=== PATIENT | male | born 1955 | race Caucasian/White ===

== ENCOUNTER 2023-09-01 09:48 | Inpatient (IN) ==
--- NOTE | 2023-09-01 10:16 | Emergency Department Note ---
Impression & Plan Acute left-sided low back pain, Left leg swelling, DVT (deep venous thrombosis), Prostate cancer metastatic to bone ED Provider Note ED Provider Note NAME: TAMARA NICOLAS AGE:67 SEX: Male : 1955 ARRIVES VIA: Private vehicle INFORMANT: Patient ED PROVIDER(s): Zoey Valdovinos DO CHIEF COMPLAINT: Left low back pain, left leg swelling, left leg pain HPI: This is a 67-year-old male presents emergency department due to concern for left low back pain, left leg pain and swelling that began 3 weeks ago. No recent trauma or change in activity. He states symptoms began with the pain in his low back followed by pain and swelling to the leg. He states he has had difficulty performing daily functions. He states has been using a heating pad to try and help with pain. No prior history of back pain or ongoing problems. No recent change in bowel or bladder function. He denies fevers or chills. He states he had persistent nausea and decreased appetite with subsequent weight loss but feels this all started when he had a shoulder replacement surgery 3 months ago. Patient is a former smoker. Patient here visiting his son. PAST MEDICAL HISTORY:See Below PAST SURGICAL HISTORY:See Below FAMILY HISTORY:See Below SOCIAL HISTORY:See Below HOME MEDICATIONS:See Below ALLERGIES:See Below VITALS:See Below PHYSICAL EXAMINATION: GENERAL: alert, unwell appearing, cachectic appearing, no distress, non-toxic EYE EXAM: normal conjunctiva, PERRL and EOM's grossly intact OROPHARYNX: no exudate, no erythema, lips, buccal mucosa, and tongue normal and mucous membranes are moist NECK: supple, no nuchal rigidity, no adenopathy, non-tender LUNGS: Clear to auscultation. Normal chest wall mechanics, no w/r/r HEART: no murmurs, S1 normal and S2 normal ABDOMEN: abdomen soft, non-tender, normo-active bowel sounds, no masses, no rebound or guarding. BACK: Back is symmetrical on inspection and there is no deformity, no midline tenderness, no CVA tenderness. Pain with palpation over the left PSIS. SKIN: no rashes, petechiae, orbruising UPPER EXTREMITIES: upper extremities are grossly normal. FROM, nml pulses b/l. LOWER EXTREMITIES: LLE 2+ pitting edema. FROM, nml pulses b/l. NEURO EXAM: Normal sensorium, cranial nerves II-XII grossly intact, normal speech, no facial droop,nogross weakness of arms, no gross weakness of legs. Gross sensation intact. No ataxia. Vital Signs: reviewed and remarkable Differential Diagnosis: DVT, CHF, TINO, lumbar radiculopathy, occult fracture, musculoskeletal strain/sprain, lymphedema, occult trauma, as well as others were considered MEDICAL DECISION MAKING: This is 67-year-old male presents emerged from due to concern for left lower extremity swelling and left low back pain for the last several weeks. No prior evaluation. He was afebrile vital signs stable. Labs drawn and sent, IV established, EKG performed at bedside interpreted me and patient monitored on telemetry. Patient sent for lower extremity Doppler and then sent for CT of the abdomen pelvis as well as lumbar spine. Doppler positive for DVT. CTs showed a large pelvic mass with metastatic disease to bones and liver. Likely of prostatic origin. Case discussed initially with on-call oncology. They did request input from urology given hydronephrosis noted on CT although patient had no evidence of kidney dysfunction. Urology did review the CT and stated no need for urgent urologic intervention at this time. Oncology was updated. Case discussed with the hospitalist team for additional evaluation and management. Patient started on Lovenox after review of risk versus benefits. Patient with no contraindications to anticoagulation at this time. We did have a discussion at bedside regarding the findings and results as well as the plan forward at this time. Patient verbalized understanding was in agreement with additional inpatient evaluation and management. Consultation(s): 1400: Discussed with Dr. Pizano, [facility]-on[facility]. 1440: Discussed with Nathaly Borges, [facility] who reviewed it with Dr. Zavala. 1525: Discussed with Dr. Gonzalez, [facility] hospitalist team, for additional evaluation and management. ER Treatment Provided: See below Diagnostics Interpreted By Me: -ECG: Normal sinus at 80, normal axis, normal intervals, PAC noted, no acute ST/T wave changes -Cardiac Monitoring: An order was placed for continuous cardiac monitoring. The monitor shows a rate of 70 with normal sinus rhythm. -Laboratory studies: As stated above and show below. -Imaging studies: US: dvt noted Triage Nursing Note Reviewed Prior/Outside Records Reviewed Critical Care: Critical care of 41 min performed to assess and manage high likelihood of life- threatening dvt and metastatic cancer, involving labs and imaging performed with assessment to evaluate back pain and leg swelling diagnosis with frequent reassessment. This time includes bedside time, treatment discussions with patient/family/consultants, documentation time and excludes procedure time. Past Med/Surg History Problem List (Updated 09/02/23 @ 08:37 by Jackie Pizano MD) Metastasis to liver Metastasis to bone HTN (hypertension) Prostate cancer metastatic to bone DVT (deep venous thrombosis) Left leg swelling (Acute) Acute left-sided low back pain (Acute) Social History Smoking Status: Former smoker Hx Alcohol Use: No Preferred Language: [place] Examiner Required: No Current Living Situation: Alone Feels Safe at Home: Yes Assistive Devices: Denture - Upper and Denture - Lower Allergies Allergies Allergy/AdvReac Type Severity Reaction Status Date / Time No Known Allergies Allergy Unverified 09/01/23 14:25 Home Meds Home Medications Medication Instructions Recorded Confirmed acetaminophen 500 mg tablet 500 mg PO Q6H PRN pain/fever 09/01/23 09/01/23 lisinopril 20 mg tablet 20 mg PO QAM 09/01/23 09/01/23 Results & Data (ED) Vital Signs Vital Signs - 24 hr 09/01/23 09:52 09/01/23 10:27 09/01/23 10:28 Temperature 36.2 C L Temperature Source Temporal Artery Scan Pulse Rate 85 93 H 92 H Pulse Rate from SpO2 Sensor 92 H Respiratory Rate 18 Blood Pressure 117/78 Blood Pressure Mean 91 Pulse Oximetry 97 98 Oxygen Delivery Method Room Air Sepsis New/Unexplained Change in Mental Status No Sepsis Action Taken by Nursing No Action Required 09/01/23 10:30 09/01/23 10:30 09/01/23 10:54 Temperature Temperature Source Pulse Rate 93 H 86 Pulse Rate from SpO2 Sensor 83 79 Respiratory Rate 16 14 Blood Pressure 119/98 Blood Pressure Mean 105 Pulse Oximetry 97 96 Oxygen Delivery Method Sepsis New/Unexplained Change in Mental Status Sepsis Action Taken by Nursing 09/01/23 10:57 09/01/23 11:00 09/01/23 11:03 Temperature Temperature Source Pulse Rate 83 88 Pulse Rate from SpO2 Sensor 80 74 Respiratory Rate 19 20 Blood Pressure 140/90 Blood Pressure Mean 104 Pulse Oximetry 97 97 Oxygen Delivery Method Sepsis New/Unexplained Change in Mental Status Sepsis Action Taken by Nursing 09/01/23 11:30 09/01/23 11:30 09/01/23 11:48 Temperature Temperature Source Pulse Rate 75 78 Pulse Rate from SpO2 Sensor 74 70 Respiratory Rate 14 16 Blood Pressure 149/87 H Blood Pressure Mean 104 Pulse Oximetry 97 97 Oxygen Delivery Method Sepsis New/Unexplained Change in Mental Status Sepsis Action Taken by Nursing 09/01/23 11:51 09/01/23 12:00 09/01/23 12:41 Temperature Temperature Source Pulse Rate 75 Pulse Rate from SpO2 Sensor 70 Respiratory Rate 17 Blood Pressure 148/85 H 146/87 H Blood Pressure Mean 102 97 Pulse Oximetry 98 Oxygen Delivery Method Sepsis New/Unexplained Change in Mental Status Sepsis Action Taken by Nursing 09/01/23 12:42 09/01/23 13:00 09/01/23 13:09 Temperature Temperature Source Pulse Rate 78 79 Pulse Rate from SpO2 Sensor 73 70 Respiratory Rate 19 15 Blood Pressure 163/98 H Blood Pressure Mean 127 Pulse Oximetry 98 98 Oxygen Delivery Method Sepsis New/Unexplained Change in Mental Status Sepsis Action Taken by Nursing 09/01/23 13:41 09/01/23 13:51 09/01/23 14:01 Temperature Temperature Source Pulse Rate 79 Pulse Rate from SpO2 Sensor 82 Respiratory Rate 18 Blood Pressure 172/88 H 185/116 H Blood Pressure Mean 91 153 Pulse Oximetry 98 Oxygen Delivery Method Sepsis New/Unexplained Change in Mental Status Sepsis Action Taken by Nursing 09/01/23 14:03 09/01/23 14:12 09/01/23 14:24 Temperature Temperature Source Pulse Rate 71 73 79 Pulse Rate from SpO2 Sensor 72 72 71 Respiratory Rate 19 14 15 Blood Pressure Blood Pressure Mean Pulse Oximetry 98 99 99 Oxygen Delivery Method Sepsis New/Unexplained Change in Mental Status Sepsis Action Taken by Nursing 09/01/23 14:25 09/01/23 15:00 09/01/23 15:09 Temperature Temperature Source Pulse Rate 94 H Pulse Rate from SpO2 Sensor 83 Respiratory Rate 15 Blood Pressure 151/97 H 168/109 H Blood Pressure Mean 115 126 Pulse Oximetry 98 Oxygen Delivery Method Sepsis New/Unexplained Change in Mental Status Sepsis Action Taken by Nursing 09/01/23 15:15 09/01/23 15:21 09/01/23 15:30 Temperature Temperature Source Pulse Rate 79 90 80 Pulse Rate from SpO2 Sensor 76 84 66 Respiratory Rate 14 20 18 Blood Pressure Blood Pressure Mean Pulse Oximetry 98 98 98 Oxygen Delivery Method Sepsis New/Unexplained Change in Mental Status Sepsis Action Taken by Nursing 09/01/23 15:32 09/01/23 15:33 09/01/23 15:51 Temperature Temperature Source Pulse Rate 86 82 Pulse Rate from SpO2 Sensor 68 82 Respiratory Rate 17 17 Blood Pressure 162/95 H Blood Pressure Mean 115 Pulse Oximetry 99 97 Oxygen Delivery Method Sepsis New/Unexplained Change in Mental Status Sepsis Action Taken by Nursing Laboratory Data 09/02/23 07:11 09/02/23 07:11 Lab Results 09/01/23 09/01/23 Range/Units 10:30 11:27 WBC 7.63 (4.8-10.8) K/ul RBC 4.98 (4.70-6.10) M/uL Hgb 14.7 (14.0-18.0) g/dl Hct 42.7 (42.0-52.0) % MCV 85.7 (80.0-100.0) fL MCH 29.5 (25.0-34.0) pg MCHC 34.4 (32.0-36.0) g/dL RDW Std Deviation 42.5 (36.4-46.3) fL RDW Coeff of Daisy 13.8 (11.5-14.5) % Plt Count 231 (130-400) K/uL MPV 9.7 (9.4-12.4) fL Immature Gran % (Auto) 0.9 % Neut % (Auto) 79.9 % Lymph % (Auto) 12.7 % Upson % (Auto) 5.6 % Eos % (Auto) 0.5 % Baso % (Auto) 0.4 % Neut # (Auto) 6.09 (1.40-6.50) K/uL Lymph # (Auto) 0.97 L (1.20-3.40) K/uL Upson # (Auto) 0.43 (0.11-0.59) K/uL Eos # (Auto) 0.04 (0.00-0.50) K/uL Baso # (Auto) 0.03 (0.00-0.20) K/uL Immature Gran # (Auto) 0.07 (0.01-0.20) K/uL PT 11.9 (9.0-12.0) Seconds INR 1.1 (0.9-1.1) Sodium 131 L (136-145) mmol/L Potassium 3.6 (3.5-5.1) mmol/L Chloride 93 L (98-107) mmol/L Carbon Dioxide 29 (21-32) mmol/L Anion Gap 9 (3-11) BUN 15 (6-23) mg/dl Creatinine 1.23 (0.6-1.4) mg/dl Est Cr Clr Drug Dosing 42.3 ml/min Est GFR ( Amer) 69.0 ml/min Est GFR (Non-Af Amer) 59.5 ml/min BUN/Creatinine Ratio 12.2 (10-20) Glucose 135 H (70-99(Fasting)) mg/dl Calcium 9.2 (8.6-10.3) mg/dl Magnesium 1.8 (1.7-2.4) mg/dl Total Bilirubin 0.8 (0.2-1.0) mg/dl AST 33 (13-39) U/L ALT 18 (7-52) U/L Alkaline Phosphatase 180 H (34-104) U/L Troponin I High Sens 8.9 (0-20) pg/ml Total Protein 7.8 (6.0-8.3) gm/dl Albumin 4.8 (3.4-5.0) gm/dl Globulin 3.0 (2.5-4.0) gm/dl Albumin/Globulin Ratio 1.6 (0.9-2) Lipase 24 (11-82) U/L Prostate Specific Ag 442.000 H (0-4) ng/ml TSH 1.228 (0.300-4.500) uIu/ml Urine Color Yellow Urine Appearance Clear (Clear) Urine pH 7.0 (4.5-7.5) Ur Specific Ragan 1.019 (1.000-1.030) Urine Protein 1+ H (Negative) Urine Glucose (UA) Negative (Negative) Urine Ketones Trace H (Negative) Urine Blood Negative (Negative) Urine Nitrite Negative (Negative) Urine Bilirubin Negative (Negative) Urine Urobilinogen Negative (Negative) Ur Leukocyte Esterase Negative (Negative) Urine WBC (Auto) 0-5 (0-5) /hpf Urine RBC (Auto) 0-2 (0-2) /hpf U Hyaline Cast (Auto) 0-2 (0-2) /lpf U Epithel Cells (Auto) 0-2 (0-2) /hpf Urine Bacteria (Auto) None Seen (None Seen) Administered Medications Enoxaparin Sodium (Enoxaparin Inj 60 Mg/0.6 Ml Syr) 50 mg SQ Q12H [facility] Stop: 10/02/23 03:59 Last Admin: 09/02/23 04:19 Dose: 50 mg Documented By: SRW Sodium Chloride (Nss) 1,000 mls @ 125 mls/hr IV .Q8H [facility] Stop: 10/01/23 10:14 Last Admin: 09/02/23 03:25 Dose: 125 mls/hr Documented By: W Infusion: 09/02/23 03:09 Dose: Infused Documented By: Admin: 09/01/23 19:09 Dose: 125 mls/hr Documented By: W Infusion: 09/01/23 18:25 Dose: Infused Documented By: Admin: 09/01/23 10:25 Dose: 125 mls/hr Documented By: BRINA Ceftriaxone Sodium (Rocephin) 2,000 mg in 50 mls @ 100 mls/hr IV Q24H [facility] Stop: 09/08/23 22:59 Last Infusion: 09/02/23 00:24 Dose: Infused Documented By: Admin: 09/01/23 23:45 Dose: 100 mls/hr Documented By: MAXIMINO Azithromycin 500 mg/ Dextrose 255 mls @ 127.5 mls/hr IV Q24H [facility] Stop: 09/09/23 00:00 Last Infusion: 09/02/23 04:17 Dose: Infused Documented By: Admin: 09/02/23 00:23 Dose: 127.5 mls/hr Documented By: MAXIMINO Lidocaine (Lidocaine 5% 1 Patch) 1 patch TD DAILY [facility] Stop: 10/02/23 08:59 Last Admin: 09/01/23 19:12 Dose: Not Given Documented By: SRW Lisinopril (Lisinopril 20 Mg Tab) 20 mg PO QAM [facility] Stop: 10/02/23 08:59 Last Admin: 09/02/23 08:14 Dose: 20 mg Documented By: PATRICIA Miscellaneous (Remove Lidoderm Patch) 1 each N/A DAILY@2100 [facility] Stop: 10/01/23 20:59 Last Admin: 09/01/23 19:12 Dose: Not Given Documented By: SRW Morphine Sulfate (Morphine Sulfate 4 Mg/Ml 1 Ml Carp\Vial) 4 mg IV Q4 PRN PRN Reason: Severe Pain (Scale 7, 8, 9,10) Stop: 09/15/23 15:50 Last Admin: 09/02/23 07:28 Dose: 4 mg Documented By: Admin: 09/02/23 03:24 Dose: 4 mg Documented By: Admin: 09/01/23 23:06 Dose: 4 mg Documented By: Admin: 09/01/23 19:08 Dose: 4 mg Documented By: SRW Discontinued Medications Enoxaparin Sodium (Enoxaparin 1 Mg/Kg) 1 mg SQ NOW STA Stop: 09/01/23 14:56 Last Admin: 09/01/23 15:35 Dose: Not Given Documented By: ML Enoxaparin Sodium (Enoxaparin Inj 60 Mg/0.6 Ml Syr) 50 mg SQ NOW STA Stop: 09/01/23 15:05 Last Admin: 09/01/23 15:35 Dose: 50 mg Documented By: BRINA Acetaminophen (Ofirmev) 1,000 mg in 100 mls @ 400 mls/hr IV NOW STA Stop: 09/01/23 10:27 Last Infusion: 09/01/23 10:39 Dose: Infused Documented By: Admin: 09/01/23 10:24 Dose: 400 mls/hr Documented By: ML Ioversol (Optiray 320 100ml) 94 ml IV ONCE ONE Stop: 09/01/23 12:58 Last Admin: 09/01/23 12:59 Dose: 94 ml Documented By: JAR Ioversol (Optiray 320 125ml) 90 ml IV ONCE ONE Stop: 09/01/23 20:44 Last Admin: 09/01/23 20:43 Dose: 90 ml Documented By: PLW Lidocaine (Lidocaine 5% 1 Patch) 1 patch TD NOW STA Stop: 09/01/23 10:13 Last Admin: 09/01/23 10:24 Dose: 1 patch Documented By: BRINA Lisinopril (Lisinopril 10 Mg Tab) 10 mg PO QAM [facility] Stop: 10/01/23 15:59 Last Admin: 09/01/23 17:49 Dose: Not Given Documented By: ANGELA Morphine Sulfate (Morphine Sulfate 4 Mg/Ml 1 Ml Carp\Vial) 4 mg IV NOW STA Stop: 09/01/23 15:26 Last Admin: 09/01/23 15:35 Dose: 4 mg Documented By: ML Imaging Data Radiologist's Impression: Venous Doppler Study 09/01/23 10:12 LEFT LOWER EXTREMITY VENOUS DOPPLER HISTORY: Left leg edema, pain COMPARISON STUDY: None. FINDINGS: There is occlusive to near occlusive thrombus seen within the left common femoral vein and left superficial femoral vein. The left popliteal vein and left calf veins appear patent. There is also thrombus seen within the left greater saphenous vein. IMPRESSION: Left lower extremity DVT as described above. ACT 112: Negative or not required by law. Electronically signed by: Manuel March M.D. 09/01/2023 12:41 PM Abdomen/Pelvis CT 09/01/23 12:38 CT OF THE ABDOMEN AND PELVIS WITH CONTRAST CLINICAL HISTORY: Left back pain, wt loss, LLE swelling. COMPARISON STUDY: None. TECHNIQUE: Following IV administration of 94 mL of Optiray, axial images of the abdomen and pelvis were obtained from the lung bases to the proximal femurs. Images were reviewed in the axial, sagittal, and coronal planes. IV contrast was administered without complication. Automated exposure control was utilized for the study. A dose lowering technique was utilized adhering to the principles of ALARA. CT DOSE: 787.32 mGy.cm FINDINGS: Right lower lobe airspace opacity with interlobular septal thickening is partially imaged on this exam. No pneumatosis, free air or portal venous gas is present. There is a small hiatal hernia. Multiple large hepatic masses are present. These are likely centrally necrotic. Index segment 4 lesion measures 9.1 x 8.4 cm. There is no biliary or pancreatic ductal dilatation. The spleen, adrenal glands and pancreas are unremarkable. The right kidney is unremarkable. There is moderate left hydroureteronephrosis with delayed nephrogram and left renal atrophy. There is abrupt narrowing of the left ureter at the level of the upper pelvis on image 214 of 337. This is due to pathologic adenopathy. Extensive left-sided retroperitoneal lymphadenopathy. Index infiltrative left iliac node on image 216 measures 4.6 x 3.2 cm. This adenopathy likely occludes the left iliac veins. There is a large infiltrative left pelvic mass which measures 8.5 x 6.5 cm. This partially encases the prostate gland and extends to the base of the bladder and rectum. Bladder wall thickening is noted. In addition, there is rectal wall thickening. Pathologic perirectal lymph nodes are present. There is no evidence for a bowel obstruction. Numerous sclerotic skeletal lesions are present. No pathologic fractures are identified. Probable extension of tumor into the left iliac and gluteal musculature is noted. There is asymmetric edema within the left thigh. IMPRESSION: 1. Extensive hepatic, skeletal and glenny metastases, as described above. 8.5 x 6.5 cm infiltrative left pelvic mass which encases the prostate and abuts the rectum and bladder. The findings favor prostate cancer with metastatic disease. 2. Infiltrative left iliac adenopathy likely occludes the left iliac veins and narrows the left ureter with resultant moderate left hydroureteronephrosis with delayed nephrogram and left renal atrophy. 3. No bowel obstruction. 4. Partially visualized right lower lobe airspace opacity with interlobular septal thickening. ACT 112: Negative or not required by law. Electronically signed by: Diego Whyte M.D. 09/01/2023 1:[address] 09/01/23 12:38 CT lumbar spine w con CT DOSE: CLINICAL HISTORY: left lbp, LLE edema, wt loss TECHNIQUE: Multiaxial CT images of the lumbar spine were performed following the intravenous administration of contrast and reformatted in the sagittal and coronal plane. A dose lowering technique was utilized adhering to the principles of ALARA. COMPARISON STUDY: None. FINDINGS: There is multifocal osteoblastic metastatic disease within the lumbar spine and sacrum. Dominant lesion at the L2 level measures 1.7 cm. No acute fractures within the lumbar spine. Mild disc space narrowing at L2-L3. No significant central canal narrowing by CT technique. There is retroperitoneal and left iliac lymphadenopathy. There is left-sided hydronephrosis. Partially visualized hepatic masses. IMPRESSION: 1. 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 2. No acute fractures. 3. Retroperitoneal and left iliac lymphadenopathy with multiple hepatic masses. This likely represents metastatic disease. This is better appreciated on the same day abdomen and pelvis CT. ACT 112: Negative or not required by law. Electronically signed by: Manuel March M.D. 09/01/2023 1:10 PM Discharge Plan Visit Data Chief Complaint: Leg Injury/Pain Stated Complaint: L LEG SWELLING, DIZZY, LBP, L KNEE PAIN, WEAK ED Provider: Zoey Valdovinos Discharge Problem: Acute left-sided low back pain, Left leg swelling, DVT (deep venous thrombosis), Prostate cancer metastatic to bone Patient Disposition: Admitted As Inpatient Discharge Instructions Interventions: ED Discharge Assessment Last Done: 09/01/23 17:14
[2023-09-01] MEDS: ACETAMINOPHEN 1,000 MG/100 ML VIAL IV STA (10:24)
[2023-09-01] MEDS: LIDOCAINE 5% 1 PATCH TD STA (10:24)
[2023-09-01] MEDS: SODIUM CHLORIDE 0.9% 1,000 ML IV SCH (10:25)
[2023-09-01 11:05] LABS: Basophils # (auto) 0.03 K/uL (0.00-0.20); Basophils % (auto) 0.4 %; Eosinophils # (auto) 0.04 K/uL (0.00-0.50); Eosinophils % (auto) 0.5 %; Hematocrit (blood only) 42.7 % (42.0-52.0); Hemoglobin 14.7 g/dl (14.0-18.0); INR 1.1 (0.9-1.1); Immature Granulocytes # (auto) 0.07 K/uL (0.01-0.20); Immature Granulocytes % (auto) 0.9 %; Lymphocytes # (auto) 0.97 K/uL (1.20-3.40); Lymphocytes % (auto) 12.7 %; Mean Corpuscular Hemoglobin 29.5 pg (25.0-34.0); Mean Corpuscular Hgb Conc 34.4 g/dL (32.0-36.0); Mean Corpuscular Volume 85.7 fL (80.0-100.0); Mean Platelet Volume 9.7 fL (9.4-12.4); Monocytes # (auto) 0.43 K/uL (0.11-0.59); Monocytes % (auto) 5.6 %; Neutrophils # (auto) 6.09 K/uL (1.40-6.50); Neutrophils % (auto) 79.9 %; Platelet Count 231 K/uL (130-400); Prothrombin Time 11.9 Seconds (9.0-12.0); RDW Coefficient of Variation 13.8 % (11.5-14.5); RDW Standard Deviation 42.5 fL (36.4-46.3); Red Blood Count 4.98 M/uL (4.70-6.10); White Blood Count 7.63 K/ul (4.8-10.8)
[2023-09-01 11:11] LABS: Albumin Globulin Ratio 1.6 (0.9-2); Albumin Level 4.8 gm/dl (3.4-5.0); BUN Creatinine Ratio 12.2 (10-20); Bilirubin,Total 0.8 mg/dl (0.2-1.0); Calcium 9.2 mg/dl (8.6-10.3); Creatinine Clr Calc Pharmacy 42.3 ml/min; Est GFR (Non-African American) 59.5 ml/min; Magnesium 1.8 mg/dl (1.7-2.4); Potassium 3.6 mmol/L (3.5-5.1); Total Protein 7.8 gm/dl (6.0-8.3)
[2023-09-01 11:18] LABS: Troponin I High Sensitivity 8.9 pg/ml (0-20)
[2023-09-01 11:26] LABS: Thyroid Stimulating Hormone 1.228 uIu/ml (0.300-4.500)
[2023-09-01 11:49] LABS: Appearance Urine Clear (Clear); Bacteria Urine Automated None Seen (None Seen); Bilirubin Urine Negative (Negative); Blood Urine Negative (Negative); Cast Urine Automated 0-2 /lpf (0-2); Color Urine Yellow; Epithelial Cell Urine Auto 0-2 /hpf (0-2); Glucose Urine UA Negative (Negative); Ketones Urine Trace (Negative); Leukocyte Esterase Urine Negative (Negative); Nitrite Urine Negative (Negative); Protein Urine 1+ (Negative); RBC Urine Automated 0-2 /hpf (0-2); Specific Gravity Urine 1.019 (1.000-1.030); Urobilinogen Urine Negative (Negative); WBC Urine Automated 0-5 /hpf (0-5)
--- NOTE | 2023-09-01 12:43 | Ultrasound Report ---
LEFT LOWER EXTREMITY VENOUS DOPPLER HISTORY: Left leg edema, pain COMPARISON STUDY: None. FINDINGS: There is occlusive to near occlusive thrombus seen within the left common femoral vein and left superficial femoral vein. The left popliteal vein and left calf veins appear patent. There is al so thrombus seen within the left greater saphenous vein. IMPRESSION: Left lower extremity DVT as described above. ACT 112: Negative or not required by law. Electronically signed by: Manuel March M.D. 09/01/2023 12:41 PM
[2023-09-01] MEDS: OPTIRAY 320 100ml IV ONE (12:59)
--- NOTE | 2023-09-01 13:11 | CT Scan Report ---
CT lumbar spine w con CT DOSE: CLINICAL HISTORY: left lbp, LLE edema, wt loss TECHNIQUE: Multiaxial CT images of the lumbar spine were performed following the intravenous administ ration of contrast and reformatted in the sagittal and coronal plane. A dose lowering technique was utilized adhering to the principles of ALARA. COMPARISON STUDY: None. FINDINGS: There is multifocal osteoblastic metastatic disease within the lumbar spine and sacrum. Dom inant lesion at the L2 level measures 1.7 cm. No acute fractures within the lumbar spine. Mild disc s pace narrowing at L2-L3. No significant central canal narrowing by CT technique. There is retroperito mark and left iliac lymphadenopathy. There is left-sided hydronephrosis. Partially visualized hepatic masses. IMPRESSION: 1. 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 2. No acute fractures. 3. Retroperitoneal and left iliac lymphadenopathy with multiple hepatic masses. This likely represent s metastatic disease. This is better appreciated on the same day abdomen and pelvis CT. ACT 112: Negative or not required by law. Electronically signed by: Manuel March M.D. 09/01/2023 1:10 PM
--- NOTE | 2023-09-01 13:44 | CT Scan Report ---
CT OF THE ABDOMEN AND PELVIS WITH CONTRAST CLINICAL HISTORY: Left back pain, wt loss, LLE swelling. COMPARISON STUDY: None. TECHNIQUE: Following IV administration of 94 mL of Optiray, axial images of the abdomen and pelvis we re obtained from the lung bases to the proximal femurs. Images were reviewed in the axial, sagittal, and coronal planes. IV contrast was administered without complication. Automated exposure control wa s utilized for the study. A dose lowering technique was utilized adhering to the principles of ALARA . CT DOSE: 787.32 mGy.cm FINDINGS: Right lower lobe airspace opacity with interlobular septal thickening is partially imaged o n this exam. No pneumatosis, free air or portal venous gas is present. There is a small hiatal hernia . Multiple large hepatic masses are present. These are likely centrally necrotic. Index segment 4 les ion measures 9.1 x 8.4 cm. There is no biliary or pancreatic ductal dilatation. The spleen, adrenal g lands and pancreas are unremarkable. The right kidney is unremarkable. There is moderate left hydrour eteronephrosis with delayed nephrogram and left renal atrophy. There is abrupt narrowing of the left ureter at the level of the upper pelvis on image 214 of 337. This is due to pathologic adenopathy. Ex tensive left-sided retroperitoneal lymphadenopathy. Index infiltrative left iliac node on image 216 m easures 4.6 x 3.2 cm. This adenopathy likely occludes the left iliac veins. There is a large infiltra tive left pelvic mass which measures 8.5 x 6.5 cm. This partially encases the prostate gland and exte nds to the base of the bladder and rectum. Bladder wall thickening is noted. In addition, there is re ctal wall thickening. Pathologic perirectal lymph nodes are present. There is no evidence for a bowel obstruction. Numerous sclerotic skeletal lesions are present. No pathologic fractures are identified . Probable extension of tumor into the left iliac and gluteal musculature is noted. There is asymmetr ic edema within the left thigh. IMPRESSION: 1. Extensive hepatic, skeletal and glenny metastases, as described above. 8.5 x 6.5 cm infiltrative le ft pelvic mass which encases the prostate and abuts the rectum and bladder. The findings favor prosta te cancer with metastatic disease. 2. Infiltrative left iliac adenopathy likely occludes the left iliac veins and narrows the left urete r with resultant moderate left hydroureteronephrosis with delayed nephrogram and left renal atrophy. 3. No bowel obstruction. 4. Partially visualized right lower lobe airspace opacity with interlobular septal thickening. ACT 112: Negative or not required by law. Electronically signed by: Diego Whyte M.D. 09/01/2023 1:43 PM
[2023-09-01] MEDS: ENOXAPARIN INJ 60 MG/0.6 ML SYR SQ STA (15:35)
[2023-09-01] MEDS: ENOXAPARIN 1 MG/KG SQ STA (15:35)
[2023-09-01] MEDS: MoRPHine SULFATE 4 MG/ML 1 ML CARP\\VIAL IV STA (15:35)
[2023-09-01] MEDS ORDERED: ONDANSETRON INJ 2 MG/ML 2 ML VIAL IV PRN (15:46)
[2023-09-01] MEDS ORDERED: MAGNESIUM HYDROXIDE SUSP 30 ML UDC PO PRN (15:46)
[2023-09-01] MEDS ORDERED: POLYETHYLENE (MIRALAX) 17 GM PACK PO PRN (15:46)
[2023-09-01] MEDS ORDERED: ACETAMINOPHEN 325 MG TAB PO PRN (15:46)
[2023-09-01] MEDS ORDERED: oxyCODONE HCL IR 5 MG TAB (IMMEDIATE RELEASE) PO PRN (15:52)
[2023-09-01] MEDS ORDERED: ENOXAPARIN 1 MG/KG SQ SCH (16:00)
--- NOTE | 2023-09-01 16:36 | History & Physical Report ---
Date of Service September 01, 2023 Assessment & Plan (1) DVT (deep venous thrombosis): Plan: Left lower extremity DVT , most likely due to to cancer Started on Lovenox (2) Prostate cancer metastatic to bone: Plan: Right lower lobe airspace opacity with interlobular septal thickening is partially imaged on this exam. No pneumatosis, free air or portal venous gas is present. There is a small hiatal hernia. Multiple large hepatic masses are present. These are likely centrally necrotic. Index segment 4 lesion measures 9.1 x 8.4 cm. There is no biliary or pancreatic ductal dilatation. The spleen, adrenal glands and pancreas are unremarkable. The right kidney is unremarkable. There is moderate left hydroureteronephrosis with delayed nephrogram and left renal atrophy. There is abrupt narrowing of the left ureter at the level of the upper pelvis on image 214 of 337. This is due to pathologic adenopathy. Extensive left-sided retroperitoneal lymphadenopathy. Index infiltrative left iliac node on image 216 measures 4.6 x 3.2 cm. This adenopathy likely occludes the left iliac veins. There is a large infiltrative left pelvic mass which measures 8.5 x 6.5 cm. This partially encases the prostate gland and extends to the base of the bladder and rectum. Bladder wall thickening is noted. In addition, there is rectal wall thickening. Pathologic perirectal lymph nodes are present. There is no evidence for a bowel obstruction. Numerous sclerotic skeletal lesions are present. No pathologic fractures are identified. Probable extension of tumor into the left iliac and gluteal musculature is noted. There i s asymmetric edema within the left thigh. Metastatic prostate cancer, mets to the liver, possibly lungs, bones Consult hematology oncology Consult urology Will need a biopsy, probably liver can be biopsied pain control (3) HTN (hypertension): Plan: Continue lisinopril, monitor blood pressure Plan Admit to the floor Will start Lovenox Consult hematology oncology, will need a biopsy, PSA ordered Poor prognosis, patient wants to be full code History of Present Illness Chief Complaint: left leg pain and swelling Primary Care Provider: RICHARD PCP This is a 67-year-old male with history of hypertension , recent right shoulder surgery presents emergency department due to concern for left low back pain, left leg pain and swelling that began 3 weeks ago. No recent trauma or change in activity. He states symptoms began with the pain in his low back followed by pain and swelling to the leg. He states he has had difficulty performing daily functions. He states has been using a heating pad to try and help with pain. No prior history of back pain or ongoing problems. No recent change in bowel or bladder function. He denies fevers or chills. He states he had persistent nausea and decreased appetite with subsequent weight loss but feels this all started when he had a shoulder replacement surgery 3 months ago. Patient is a former smoker. Venous Doppler positive for left lower leg DVT, started on Lovenox, CT abdomen pelvis extensive hepatic skeletal and glenny metastasis, there is a 8.5 x 6.5 cm infiltrative left pelvic mass which encases the prostate, findings favor prostate cancer with metastatic disease, has moderate left hydro ureteronephrosis. Patient denies any difficulties urinating, no hematuria, no fever or chills, reports significant weight loss, poor appetite, he still smokes a few cigarettes a day. Allergies Allergy/AdvReac Type Severity Reaction Status Date / Time No Known Allergies Allergy Unverified 09/01/23 14:25 Home Medications Medication Instructions Recorded Confirmed Type acetaminophen 500 mg tablet 500 mg PO Q6H PRN pain/fever 09/01/23 09/01/23 History lisinopril 20 mg tablet 20 mg PO QAM 09/01/23 09/01/23 History Past Med/Surg History Problem List (Updated 09/01/23 @ 16:31 by Diane Gonzalez MD) HTN (hypertension) Prostate cancer metastatic to bone DVT (deep venous thrombosis) Left leg swelling (Acute) Acute left-sided low back pain (Acute) Social History Smoking Status: Former smoker Preferred Language: Nauruan Feels Safe at Home: Yes Review of Systems Review of Systems: All systems reviewed & are unremarkable except as noted in Subjective Physical Exam Physical Exam: GENERAL: alert, unwell appearing, cachectic appearing, no distress, non-toxic EYE EXAM: normal conjunctiva, PERRL and EOM's grossly intact OROPHARYNX: no exudate, no erythema, lips, buccal mucosa, and tongue normal and mucous membranes are moist NECK: supple, no nuchal rigidity, no adenopathy, non-tender LUNGS: Clear to auscultation. Normal chest wall mechanics, no w/r/r HEART: no murmurs, S1 normal and S2 normal ABDOMEN: abdomen soft, non-tender, normo-active bowel sounds, no masses, no rebound or guarding. BACK: Back is symmetrical on inspection and there is no deformity, no midline tenderness, no CVA tenderness. Pain with palpation over the left PSIS. SKIN: no rashes, petechiae, orbruising UPPER EXTREMITIES: upper extremities are grossly normal. FROM, nml pulses b/l. LOWER EXTREMITIES: LLE 2+ pitting edema. FROM, nml pulses b/l. NEURO EXAM: Normal sensorium, cranial nerves II-XII grossly intact, normal speech, no facial droop,nogross weakness of arms, no gross weakness of legs. Gross sensation intact. No ataxia. Results & Data Results & Data Vital Signs (Past 12 Hours) Vital Signs Temp Pulse Resp BP Pulse Ox O2 Del Method 09/01/23 15:32 162/95 H 09/01/23 15:30 80 18 98 09/01/23 15:21 90 20 98 09/01/23 15:15 79 14 98 09/01/23 15:09 94 H 15 98 09/01/23 15:00 168/109 H 09/01/23 14:25 151/97 H 09/01/23 14:24 79 15 99 09/01/23 14:12 73 14 99 09/01/23 14:03 71 19 98 09/01/23 14:01 185/116 H 09/01/23 13:51 79 18 98 09/01/23 13:41 172/88 H 09/01/23 13:09 79 15 98 09/01/23 13:00 163/98 H 09/01/23 12:42 78 19 98 09/01/23 12:41 146/87 H 09/01/23 12:00 148/85 H 09/01/23 11:51 75 17 98 09/01/23 11:48 78 16 97 09/01/23 11:30 149/87 H 09/01/23 11:30 75 14 97 09/01/23 11:03 88 20 97 09/01/23 11:00 140/90 09/01/23 10:57 83 19 97 09/01/23 10:54 86 14 96 09/01/23 10:30 93 H 16 97 09/01/23 10:30 119/98 09/01/23 10:28 92 H 09/01/23 10:27 93 H 98 09/01/23 09:52 36.2 C L 85 18 117/78 97 Room Air Laboratory Results Abnormal lab results 09/01/23 09/01/23 Range/Units 10:30 11:27 Lymph # (Auto) 0.97 L (1.20-3.40) K/uL Sodium 131 L (136-145) mmol/L Chloride 93 L (98-107) mmol/L Glucose 135 H (70-99(Fasting)) mg/dl Alkaline Phosphatase 180 H (34-104) U/L Prostate Specific Ag 442.000 H (0-4) ng/ml Urine Protein 1+ H (Negative) Urine Ketones Trace H (Negative) Diagnostic Findings Venous Doppler Study 09/01/23 10:12 LEFT LOWER EXTREMITY VENOUS DOPPLER HISTORY: Left leg edema, pain COMPARISON STUDY: None. FINDINGS: There is occlusive to near occlusive thrombus seen within the left common femoral vein and left superficial femoral vein. The left popliteal vein and left calf veins appear patent. There is also thrombus seen within the left greater saphenous vein. IMPRESSION: Left lower extremity DVT as described above. ACT 112: Negative or not required by law. Electronically signed by: Manuel March M.D. 09/01/2023 12:41 PM Abdomen/Pelvis CT 09/01/23 12:38 CT OF THE ABDOMEN AND PELVIS WITH CONTRAST CLINICAL HISTORY: Left back pain, wt loss, LLE swelling. COMPARISON STUDY: None. TECHNIQUE: Following IV administration of 94 mL of Optiray, axial images of the abdomen and pelvis were obtained from the lung bases to the proximal femurs. Images were reviewed in the axial, sagittal, and coronal planes. IV contrast was administered without complication. Automated exposure control was utilized for the study. A dose lowering technique was utilized adhering to the principles of ALARA. CT DOSE: 787.32 mGy.cm FINDINGS: Right lower lobe airspace opacity with interlobular septal thickening is partially imaged on this exam. No pneumatosis, free air or portal venous gas is present. There is a small hiatal hernia. Multiple large hepatic masses are present. These are likely centrally necrotic. Index segment 4 lesion measures 9.1 x 8.4 cm. There is no biliary or pancreatic ductal dilatation. The spleen, adrenal glands and pancreas are unremarkable. The right kidney is unremarkable. There is moderate left hydroureteronephrosis with delayed nephrogram and left renal atrophy. There is abrupt narrowing of the left ureter at the level of the upper pelvis on image 214 of 337. This is due to pathologic adenopathy. Extensive left-sided retroperitoneal lymphadenopathy. Index infiltrative left iliac node on image 216 measures 4.6 x 3.2 cm. This adenopathy likely occludes the left iliac veins. There is a large infiltrative left pelvic mass which measures 8.5 x 6.5 cm. This partially encases the prostate gland and extends to the base of the bladder and rectum. Bladder wall thickening is noted. In addition, there is rectal wall thickening. Pathologic perirectal lymph nodes are present. There is no evidence for a bowel obstruction. Numerous sclerotic skeletal lesions are present. No pathologic fractures are identified. Probable extension of tumor into the left iliac and gluteal musculature is noted. There is asymmetric edema within the left thigh. IMPRESSION: 1. Extensive hepatic, skeletal and glenny metastases, as described above. 8.5 x 6.5 cm infiltrative left pelvic mass which encases the prostate and abuts the rectum and bladder. The findings favor prostate cancer with metastatic disease. 2. Infiltrative left iliac adenopathy likely occludes the left iliac veins and narrows the left ureter with resultant moderate left hydroureteronephrosis with delayed nephrogram and left renal atrophy. 3. No bowel obstruction. 4. Partially visualized right lower lobe airspace opacity with interlobular septal thickening. ACT 112: Negative or not required by law. Electronically signed by: Diego Whyte M.D. 09/01/2023 1:[address] 09/01/23 12:38 CT lumbar spine w con CT DOSE: CLINICAL HISTORY: left lbp, LLE edema, wt loss TECHNIQUE: Multiaxial CT images of the lumbar spine were performed following the intravenous administration of contrast and reformatted in the sagittal and coronal plane. A dose lowering technique was utilized adhering to the principles of ALARA. COMPARISON STUDY: None. FINDINGS: There is multifocal osteoblastic metastatic disease within the lumbar spine and sacrum. Dominant lesion at the L2 level measures 1.7 cm. No acute fractures within the lumbar spine. Mild disc space narrowing at L2-L3. No significant central canal narrowing by CT technique. There is retroperitoneal and left iliac lymphadenopathy. There is left-sided hydronephrosis. Partially visualized hepatic masses. IMPRESSION: 1. 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 2. No acute fractures. 3. Retroperitoneal and left iliac lymphadenopathy with multiple hepatic masses. This likely represents metastatic disease. This is better appreciated on the same day abdomen and pelvis CT. ACT 112: Negative or not required by law. Electronically signed by: Manuel March M.D. 09/01/2023 1:10 PM Code Status & VTE Plan VTE Prophylaxis Plan VTE Prophylaxis will be ordered: Yes PG Care Time/CCT Total # of Minutes Spent Total Time Spent with Patient: Total time spent is greater than 50% in coordination of care (as documented) at patient's floor/unit and/or counseling patient: Coding Level of Care Code 94666 INT INP/OBS CARE 375MIN Diagnoses DVT (deep venous thrombosis) I82.409 Prostate cancer metastatic to bone C61; C79.51 HTN (hypertension) I10
--- NOTE | 2023-09-01 17:05 | XRay Report ---
XR chest 2V PA/lateral HISTORY: Shortness of breath. COMPARISON: None. FINDINGS: No pneumothorax. No pleural effusions. The lungs are hyperexpanded with emphysematous osborne es. No focal lung consolidations to suggest a pneumonia. No evidence for pulmonary edema. The heart i s normal in size. The right shoulder prosthesis. Mild anterior wedging within the mid thoracic spine vertebral body is likely chronic. There is a 7 mm nodular density within the left midlung zone. This may represent a normal pulmonary vessel. IMPRESSION: 1. Emphysema. 2. No acute process within the chest. 3. A 7 mm nodular density within the left midlung zone may represent a normal pulmonary vessel. This will be better appreciated on the same day chest CTA. ACT 112: Negative or not required by law. Electronically signed by: Manuel March M.D. 09/01/2023 5:03 PM
[2023-09-01] MEDS ORDERED: ACETAMINOPHEN 500 MG TAB PO PRN (17:32)
[2023-09-01] MEDS: lisinopril 10 MG TAB PO SCH (17:49)
[2023-09-01] MEDS: MoRPHine SULFATE 4 MG/ML 1 ML CARP\\VIAL IV PRN (19:08)
[2023-09-01] MEDS: LIDOCAINE 5% 1 PATCH TD SCH (19:12)
[2023-09-01] MEDS: OPTIRAY 320 125ml IV ONE (20:43)
--- NOTE | 2023-09-01 21:22 | CT Scan Report ---
CT angio chest PE protocol CLINICAL HISTORY: PE TECHNIQUE: Multidetector row helical CT of the chest was performed with angiographic protocol. Gonsalez l and sagittal reformations were obtained. Coronal and sagittal MIPS were obtained from the axial clary a set and were submitted for review. Automated dose lowering techniques and/or adjustment according to patient size were utilized for this exam. CT DOSE: 395.36 mGy.cm Comparison: None available at the time of this dictation. FINDINGS: Lungs and pleura: Diffuse centrilobular emphysema is seen most prominent in the upper lobes. Multiple wall thickening, mucous plugging, and tree-in-bud nodularity are seen most prominently in the right lower lobe. There is also a paramediastinal density measuring 7 m. Heart and pericardium: Heart size is normal. No pericardial effusion. Vessels: No evidence of pulmonary embolism. Mediastinum and zoe: Unremarkable. Chest wall and lower neck: Small thyroid nodules are noted which do not require follow-up by ACR romulo cedeno. Abdomen: For findings below the diaphragm, please refer to CT of the abdomen dated the same. Bones: Degenerative changes in the thoracic spine. Scattered sclerotic foci are seen. Right shoulder arthroplasty is seen. IMPRESSION: 1. Scattered bronchial wall thickening, mucus plugging, and nodules/airspace opacities compatible wi th pneumonia. Follow-up to resolution is recommended. 2. Multiple sclerotic foci are seen in the skeleton compatible with metastatic disease. ACT 112: Negative or not required by law. Electronically signed by: Miguelito Whiting M.D. 09/01/2023 9:20 PM
--- NOTE | 2023-09-01 22:05 | Communication Note ---
Date of Service: September 01, 2023 Stat CTA resulted showing pneumonia. Started pt on ceftriaxone and azithromycin q24hrs.
[2023-09-01] MEDS: cefTRIAXone SODIUM 2,000 MG/50 ML BAG IV SCH (23:45)
[2023-09-02] MEDS: AZITHROMYCIN 500 MG in DEXTROSE 5% 250 ML IV SCH (00:23)
[2023-09-02] MEDS: ENOXAPARIN INJ 60 MG/0.6 ML SYR SQ SCH ×2 (04:19→15:58)
[2023-09-02 07:59] LABS: Hematocrit (blood only) 37.8 % (42.0-52.0); Hemoglobin 12.9 g/dl (14.0-18.0); Mean Corpuscular Hemoglobin 29.8 pg (25.0-34.0); Mean Corpuscular Hgb Conc 34.1 g/dL (32.0-36.0); Mean Corpuscular Volume 87.3 fL (80.0-100.0); Mean Platelet Volume 9.7 fL (9.4-12.4); Platelet Count 201 K/uL (130-400); RDW Standard Deviation 43.8 fL (36.4-46.3); Red Blood Count 4.33 M/uL (4.70-6.10); White Blood Count 6.95 K/ul (4.8-10.8)
--- NOTE | 2023-09-02 08:05 | Oncology Consultation ---
Date of Consultation September 02, 2023 Assessment & Plan (1) DVT (deep venous thrombosis): (2) Metastasis to bone: (3) Metastasis to liver: Plan Very pleasant 67-year-old gentleman found to have likely prostate cancer with widely metastatic disease, PSA elevated at 442 -Recommend IR guided biopsy of liver lesion SHANIKA to confirm diagnosis. Discussed with IR who are able to perform biopsy on Thursday. Will need to hold Lovenox night and morning prior to biopsy -Since he complains of pain, he would likely benefit from palliative radiation treatment to lumbar spine lesion. This can be arranged outpatient -Will need germline mutation analysis/genetic testing outpatient given signifi cant family history of malignancy. -If biopsy confirms metastatic prostate cancer, recommend starting bicalutamide 50 mg p.o. daily while inpatient. Will plan to give androgen deprivation therapy with degarelix outpatient. Given extensive metastatic disease, would likely benefit from docetaxel IV chemotherapy upfront x 6 cycles with or without abiraterone. -Patient currently resides in [facility] but has family that lives in [place]. I will arrange for outpatient follow-up if he decides to receive cancer treatment in [facility]. Thank you for this consult. Oncology will follow peripherally while patient is in the hospital. Please feel free to call if you have any further questions. History of Present Illness Reason for Consultation: Likely newly diagnosed metastatic cancer Attending Physician: Julisa Smith MD History of Present Illness 67-year-old gentleman who presented to [facility] yesterday with lower back pain, left leg pain and swelling of 3 days duration. Left lower extremity ultrasound revealed left lower extremity DVT. CT abdomen and pelvis on 09/01/2023 revealed extensive hepatic, skeletal, glenny metastasis, 8.5 x 6.5 cm infiltrative left pelvic mass which encases the prostate and abuts the rectum and bladder favoring prostate cancer with metastatic disease, infiltrative left iliac adenopathy likely including the left iliac veins and narrows the left ureter with resultant left hydroureteronephrosis with delayed nephrogram and left renal atrophy. CT lumbar spine revealed multifocal osteoblastic metastatic disease within the lumbar spine and sacrum, retroperitoneal and left iliac lymphadenopathy with multiple hepatic metastasis. CTA chest revealed scattered bronchial wall thickening, mucous plugging and nodules/increased opacities comp atible with pneumonia as well as multiple sclerotic foci in the skeleton compatible with metastatic disease. States that his mother from pancreatic cancer and father from colon cancer. 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
[2023-09-02 08:12] LABS: Creatinine Clr Calc Pharmacy 50.3 ml/min; Est GFR (African American) 73.3 ml/min; Est GFR (Non-African American) 63.2 ml/min
[2023-09-02] MEDS: lisinopril 20 MG TAB PO SCH (08:14)
--- NOTE | 2023-09-02 11:06 | Urology Consultation ---
Date of Consultation September 02, 2023 Assessment & Plan (1) Metastasis to liver: (2) Metastasis to bone: 67 yo/M presenting with back pain, left lower extremity swelling and edema and found to have left DVT, probable metastatic prostate cancer, and pneumonia. He is afebrile, hemodynamically stable Labs reviewed-creatinine 1.17, WBC 6.95, Hgb 12.9 CT reviewed and discussed with patient Discussed suspicion for underlying prostate cancer with elevated PSA (442) and CT findings Will need biopsy for histologic confirmation Oncology consultation reviewed He is pending IR liver biopsy on Thursday Continue follow-up with medical oncology Regarding left hydronephrosis, no urgent surgical intervention required at this time given normal renal function Will require monitoring over time If renal function deteriorates, then left percutaneous nephrostomy tube would be required Son arrived at bedside during discussion, all questions answered Continue supportive care, pain management and medical management per hospital medicine service We will arrange f/u with our service outpatient if patient wishes to continue with care locally will follow peripherally History of Present Illness Reason for Consultation: prostate cancer Requesting Physician: Dr. Gonzalez Attending Physician: Julisa Smith MD History of Present Illness This is a 67-year-old male who presented to the emergency department for evaluation of low back pain and left leg pain and swelling. On arrival to ED, he was afebrile and hemodynamically stable. Workup in the emergency department included lower extremity Doppler which was positive for DVT on the left and CT imaging concerning for metastatic disease. CT abdomen pelvis with contrast showed extensive hepatic, skeletal and glenny metastases. There is an 8.5 x 6.5 cm infiltrative left pelvic mass which encases the prostate and abuts the rectum and bladder. Infiltrative left iliac adenopathy likely occludes the left iliac veins and narrows the left ureter with resultant moderate left hydroureteronephrosis with delayed nephrogram and left renal atrophy. Lumbar spine CT showed multifocal osteoblastic metastatic disease within the lumbar spine and sacrum. Lab work showed no leukocytosis, hemoglobin 14.7, creatinine 1.23. Urinalysis showed 1+ protein and trace ketones, otherwise unremarkable. He was started on antibiotics for PNA noted on CTA. Patient was admitted to the medicine service for back pain, DVT and metastatic cancer. PSA came back at 442. Urology is consulted for prostate cancer. Patient seen and examined at bedside. He reports low back pain, left lower leg pain and swelling which had been going on for several weeks with recent worsening prompting ER evaluation. He was on pain medication after a shoulder surgery and stopped that several weeks ago, then noticed worsening pain in his back and lower leg. Reports urinary frequency at baseline. He denies dysuria or hematuria. He has had weight loss. No family history of prostate cancer. History of smoking. Allergies Allergy/AdvReac Type Severity Reaction Status Date / Time No Known Allergies Allergy Unverified 09/01/23 14:25 Home Medications Medication Instructions Recorded Confirmed Type acetaminophen 500 mg tablet 500 mg PO Q6H PRN pain/fever 09/01/23 09/01/23 History lisinopril 20 mg tablet 20 mg PO QAM 09/01/23 09/01/23 History Patient History Social History Smoking Status: Former smoker Hx Alcohol Use: No Preferred Language: Setswana Communication Ability: Effective Retail Office Associate Required: No Current Living Situation: Alone Feels Safe at Home: Yes Assistive Devices: None Review of Systems Review of Systems: All systems reviewed & are unremarkable except as noted in HPI & below Physical Exam Constitutional: + thin; no acute distress Eyes: no scleral abnormality Respiratory: no respiratory distress and no labored breathing Cardiovascular: left lower extremity edema Musculoskeletal: Head/Neck/Chest: normocephalic Neurologic: moves all extremities and awake Psychiatric: Orientation: alert and oriented x 3 Results & Data Vital Signs (Past 12 Hours) Vital Signs Temp Pulse Pulse Resp BP Pulse Ox O2 Del Method 09/02/23 08:36 83 09/02/23 07:53 36.7 C 69 20 147/80 H 96 Room Air 09/02/23 03:10 36.8 C 58 L 18 136/78 96 Room Air 09/02/23 00:09 69 09/01/23 23:12 36.5 C 67 20 125/75 94 Room Air PG Care Time/CCT Total # of Minutes Spent Total Time Spent with Patient: Total time spent is greater than 50% in coordination of care (as documented) at patient's floor/unit and/or counseling patient: Coding Level of Care Code 24027 INT INP/OBS CARE 2/55MIN Diagnoses Metastasis to liver C78.7 Metastasis to bone C79.51
--- NOTE | 2023-09-02 13:06 | Hospitalist Progress Note ---
Date of Service September 02, 2023 Assessment & Plan (1) Prostate cancer metastatic to bone: Plan: CTAP: Multiple large hepatic masses are present. These are likely centrally necrotic. Index segment 4 lesion measures 9.1 x 8.4 cm. There is moderate left hydroureteronephrosis with delayed nephrogram and left renal atrophy. Extensive left-sided retroperitoneal lymphadenopathy. This adenopathy likely occludes the left iliac veins. There is a large infiltrative left pelvic mass which measures 8.5 x 6.5 cm. This partially encases the prostate gland and extends to the base of the bladder and rectum. Bladder wall thickening is noted. In addition, there is rectal wall thickening. Pathologic perirectal lymph nodes are present. Numerous sclerotic skeletal lesions are present. Probable extension of tumor into the left iliac and gluteal musculature is noted. There is asymmetric edema within the left thigh. - PSA: 442 Consult hematology oncology - IR guided bx of liver planned for 09/03 (hold lovenox evening 09/02) - outpatient palliative radiation - if biopsy confirms metastatic prostate cancer - start bicalutamide 50 mg PO daily while inpatient - outpatient follow up Consult urology - no surgical intervention given normal renal function (if worsening, left percutaneous nephrostomy tube would be required) - follow up outpatient PT consulted Patient here from [place] visiting son and grandkids - does plan to stay in [place] for further treatment. (2) DVT (deep venous thrombosis): Plan: Left lower extremity DVT , most likely due to to cancer Started on Lovenox and will increase to 60mg q12H for 1mg/kg bid dosing CTA: no PE (3) Atrial fibrillation: Plan: + on telemetry monitoring overnight 08/31 but spontaneously converted back to NSR - no prior hx of afib - switch lisinopril to metoprolol - Echo ordered - continue lovenox for anticoagulation at this time TSH WNL (4) Pneumonia: Plan: seen on chest CTA, + cough continue azithromycin and CTX Plan Dispo: continued inpatient stay Dvt proh: Lovenox q12 (hold PM 09/02) Admission and Anticipated Discharge Date Admission Date: September 01, 2023 Supervising Physician Co-Signing Physician Notes PA Supervision Note: I did not personally see or examine the patient today, but I verified all eric points of TUTU Gillespie's assessment and plan with the following exceptions/additions: None Subjective patient seen sitting up in bed eating lunch reports that he has been dealing with a lot of problems with his shoulder - needing multiple surgeries, including an antibiotic spacer and prolonged course of IV antibiotics. During that time (last 2 years) he was on high doses of narcotics for his pain - reports oxycodone 30mg TID at one point that he has weaned down from Currently reports pain is uncontrolled - the morphine takes the edge off. Understands that we have to work to find a PO regiment has not noticed any changes in his urination in the last few months Does report + cough Staying with his son and 2 granddaughters, plans to prolong his stay and complete treatment at [facility]. Review of Systems Review of Systems: All systems reviewed & are unremarkable except as noted in Subjective Physical Exam Physical Exam: General: cachectic, NAD, VS as above Resp: normal respiratory effort, lungs clear to auscultation CV: RRR, no murmur, Abd: soft, non tender, no hepatosplenomegaly Extremities: Moves all extremities, + Edema LLE/calf Neuro: A&O x3, Skin: intact, no lesions noted, multiple tattoos Results & Data Results & Data Vital Signs (Past 12 Hours) Vital Signs Temp Pulse Pulse Resp BP Pulse Ox O2 Del Method 09/02/23 11:28 36.4 C L 82 20 119/76 97 Room Air 09/02/23 08:36 83 09/02/23 07:53 36.7 C 69 20 147/80 H 96 Room Air 09/02/23 03:10 36.8 C 58 L 18 136/78 96 Room Air Laboratory Results CBC and kidney function reviewed Diagnostic Findings CTA and abdomen and pelvis CT reviewed LE doppler reviewed PG Care Time/CCT Total # of Minutes Spent Total Time Spent with Patient: Total time spent is greater than 50% in coordination of care (as documented) at patient's floor/unit and/or counseling patient: Coding Level of Care Code 68463 SUB INP/OBS CARE 3/50MIN Diagnoses Prostate cancer metastatic to bone C61; C79.51 DVT (deep venous thrombosis) I82.409 Atrial fibrillation I48.91 Pneumonia J18.9
--- NOTE | 2023-09-02 22:45 | XCELERA ---
[id number]
[2023-09-02] MEDS: oxyCODONE HCL IR 5 MG TAB (IMMEDIATE RELEASE) PO PRN (22:47)
--- NOTE | 2023-09-02 23:53 | Electrocardiogram Report ---
Test Reason : Blood Pressure : / mmHG Vent. Rate : 090 BPM Atrial Rate : 090 BPM P-R Int : 144 ms QRS Dur : 108 ms QT Int : 368 ms P-R-T Axes : 000 077 076 degrees QTc Int : 450 ms Sinus rhythm with Premature atrial complexes and Premature ventricular complexes Otherwise normal ECG No previous ECGs available Confirmed by Pato Rojas ([id number]) on 09/02/2023 11:53:38 PM Referred By: REFERRED SELF Confirmed By:Pato Rojas
[2023-09-03 05:49] LABS: Basophils # (auto) 0.04 K/uL (0.00-0.20); Basophils % (auto) 0.7 %; Eosinophils # (auto) 0.27 K/uL (0.00-0.50); Eosinophils % (auto) 4.8 %; Hematocrit (blood only) 35.3 % (42.0-52.0); Hemoglobin 12.2 g/dl (14.0-18.0); Immature Granulocytes # (auto) 0.05 K/uL (0.01-0.20); Immature Granulocytes % (auto) 0.9 %; Lymphocytes # (auto) 1.16 K/uL (1.20-3.40); Lymphocytes % (auto) 20.6 %; Mean Corpuscular Hemoglobin 29.8 pg (25.0-34.0); Mean Corpuscular Hgb Conc 34.6 g/dL (32.0-36.0); Mean Corpuscular Volume 86.1 fL (80.0-100.0); Mean Platelet Volume 9.7 fL (9.4-12.4); Monocytes # (auto) 0.56 K/uL (0.11-0.59); Monocytes % (auto) 9.9 %; Neutrophils # (auto) 3.55 K/uL (1.40-6.50); Neutrophils % (auto) 63.1 %; Platelet Count 178 K/uL (130-400); RDW Coefficient of Variation 13.9 % (11.5-14.5); RDW Standard Deviation 43.6 fL (36.4-46.3); White Blood Count 5.63 K/ul (4.8-10.8)
[2023-09-03 06:15] LABS: Albumin Globulin Ratio 1.8 (0.9-2); BUN Creatinine Ratio 18.2 (10-20); Bilirubin,Total 0.3 mg/dl (0.2-1.0); Calcium 8.7 mg/dl (8.6-10.3); Est GFR (African American) 70.4 ml/min; Est GFR (Non-African American) 60.7 ml/min; Globulin 2.2 gm/dl (2.5-4.0); Potassium 4.5 mmol/L (3.5-5.1); Total Protein 6.2 gm/dl (6.0-8.3)
--- NOTE | 2023-09-03 07:28 | Electrocardiogram Report ---
Test Reason : Blood Pressure : / mmHG Vent. Rate : 080 BPM Atrial Rate : 080 BPM P-R Int : 140 ms QRS Dur : 092 ms QT Int : 376 ms P-R-T Axes : 012 072 071 degrees QTc Int : 433 ms Sinus rhythm with Premature atrial complexes Otherwise normal ECG When compared with ECG of 01-SEP-2023 10:21, No significant change was found Confirmed by Pato Rojas ([id number]) on 09/03/2023 7:28:22 AM Referred By: REFERRED SELF Confirmed By:Pato Rojas
[2023-09-03] MEDS: METOPROLOL SUCC 50MG EXT REL TAB PO SCH (07:55)
--- NOTE | 2023-09-03 09:23 | Hospitalist Progress Note ---
Date of Service September 03, 2023 Assessment & Plan (1) Prostate cancer metastatic to bone: Plan: CTAP: Multiple large hepatic masses are present. These are likely centrally necrotic. Index segment 4 lesion measures 9.1 x 8.4 cm. There is moderate left hydroureteronephrosis with delayed nephrogram and left renal atrophy. Extensive left-sided retroperitoneal lymphadenopathy. This adenopathy likely occludes the left iliac veins. There is a large infiltrative left pelvic mass which measures 8.5 x 6.5 cm. This partially encases the prostate gland and extends to the base of the bladder and rectum. Bladder wall thickening is noted. In addition, there is rectal wall thickening. Pathologic perirectal lymph nodes are present. Numerous sclerotic skeletal lesions are present. Probable extension of tumor into the left iliac and gluteal musculature is noted. There is asymmetric edema within the left thigh. - PSA: 442 Consult hematology oncology - IR guided bx of liver planned for 09/03 (hold lovenox evening 09/02) - outpatient palliative radiation - if biopsy confirms metastatic prostate cancer - start bicalutamide 50 mg PO daily while inpatient - outpatient follow up Consult urology - no surgical intervention given normal renal function (if worsening, left percutaneous nephrostomy tube would be required) - follow up outpatient Working towards PO pain regiement + Bowel regiment PT consulted Patient here from [place] visiting son and grandkids - does plan to stay in [place] for further treatment. (2) DVT (deep venous thrombosis): Plan: Left lower extremity DVT , most likely due to to cancer Started on Lovenox 60mg q12H for 1mg/kg bid dosing CTA: no PE (3) Atrial fibrillation: Plan: + on telemetry monitoring overnight 08/31 but spontaneously converted back to NSR - no prior hx of afib - switch lisinopril to metoprolol - Echo: normal function, no intraatrial defect - continue lovenox for anticoagulation at this time TSH WNL (4) Pneumonia: Plan: seen on chest CTA, + cough continue azithromycin and CTX (5) Hyponatremia: Plan: Sodium 130 - no hx of hyponatremia check urine osm and na, serum osm - FR added Plan Dispo: continued inpatient stay Dvt proh: Lovenox q12 placed on hold Admission and Anticipated Discharge Date Admission Date: September 01, 2023 Supervising Physician Co-Signing Physician Notes PA Supervision Note: I did not personally see or examine the patient today, but I verified all eric points of TUTU Gillespie's assessment and plan with the following exceptions/add itions: None Subjective Patient lying in bed - back pain is about the same but does feel like the oxycodone has been helping more, leg/knee pain slightly improved No BM in a couple of days appetite improving Tele - SR 60-70s Review of Systems Review of Systems: All systems reviewed & are unremarkable except as noted in Subjective Physical Exam Physical Exam: General: cachectic, NAD, VS as above Resp: normal respiratory effort, lungs clear to auscultation CV: RRR, no murmur, Abd: soft, non tender, no hepatosplenomegaly Extremities: Moves all extremities, + Edema LLE/calf Neuro: A&O x3, Skin: intact, no lesions noted, multiple tattoos Results & Data Results & Data Vital Signs (Past 12 Hours) Vital Signs Temp Pulse Pulse Resp BP Pulse Ox O2 Del Method 09/03/23 07:55 36.6 C 72 16 122/74 95 Room Air 09/03/23 03:08 36.7 C 62 20 156/75 H 97 Room Air 09/02/23 22:58 36.7 C 63 18 144/68 H 96 Room Air 09/02/23 22:00 67 Laboratory Results CBC and chemistry reviewed Diagnostic Findings Echo reviewed PG Care Time/CCT Total # of Minutes Spent Total Time Spent with Patient: Total time spent is greater than 50% in coordination of care (as documented) at patient's floor/unit and/or counseling patient: Coding Level of Care Code 72367 SUB INP/OBS CARE 3/50MIN Diagnoses Prostate cancer metastatic to bone C61; C79.51 DVT (deep venous thrombosis) I82.409 Atrial fibrillation I48.91 Pneumonia J18.9 Hyponatremia E87.1
[2023-09-03] MEDS: SENNA 8.6 MG TAB PO SCH (09:53)
[2023-09-03] MEDS: MoRPHine SULFATE 4 MG/ML 1 ML CARP\\VIAL IV PRN (15:24)
[2023-09-03] MEDS: MELATONIN 3 MG TAB PO PRN (23:52)
[2023-09-04 08:16] LABS: BUN Creatinine Ratio 16.7 (10-20); Calcium 8.3 mg/dl (8.6-10.3); Creatinine Clr Calc Pharmacy 45.4 ml/min; Est GFR (Non-African American) 51.8 ml/min; Potassium 4.7 mmol/L (3.5-5.1)
[2023-09-04] MEDS: fentaNYL citrate PF 100 MCG/2 ML VIAL ONE (10:52)
[2023-09-04] MEDS: GELATIN SPONGE 12-7MM ONE (10:53)
--- NOTE | 2023-09-04 12:52 | Ultrasound Report ---
ULTRASOUND-GUIDED LIVER LESION CORE BIOPSY CLINICAL HISTORY: Multiple hepatic lesions PROCEDURE: Procedure and risks were explained. Informed consent was obtained. A final timeout was com pleted. The abdomen was prepped and draped in sterile fashion. 1% lidocaine was utilized for skin ane sthesia. The patient received 100 mcg fentanyl IV. Utilizing ultrasound guidance, a 17-gauge coaxial needle was advanced into the left lobe liver lesion . Ultrasound images were obtained. An 18-gauge core biopsy needle was advanced, and 2 cores were obta ined and given to pathology for review. The coaxial needle was removed and Band-Aid applied. The emily ent tolerated the procedure well. Vital signs will be monitored postprocedure. IMPRESSION: Ultrasound-guided liver lesion core biopsy as above. Performed, dictated, and signed by Anam Lua PA-C; to be co-signed by Dr. Miguelito Whiting. Electronically signed by: Miguelito Whitnig M.D. 09/04/2023 5:00 PM
--- NOTE | 2023-09-04 14:00 | Hospitalist Progress Note ---
Date of Service September 04, 2023 Assessment & Plan (1) Prostate cancer metastatic to bone: Plan: CTAP: Multiple large hepatic masses are present. These are likely centrally necrotic. Index segment 4 lesion measures 9.1 x 8.4 cm. There is moderate left hydroureteronephrosis with delayed nephrogram and left renal atrophy. Extensive left-sided retroperitoneal lymphadenopathy. This adenopathy likely occludes the left iliac veins. There is a large infiltrative left pelvic mass which measures 8.5 x 6.5 cm. This partially encases the prostate gland and extends to the base of the bladder and rectum. Bladder wall thickening is noted. In addition, there is rectal wall thickening. Pathologic perirectal lymph nodes are present. Numerous sclerotic skeletal lesions are present. Probable extension of tumor into the left iliac and gluteal musculature is noted. There is asymmetric edema within the left thigh. - PSA: 442 Consult hematology oncology - S/p IR guided bx of liver - pathology pending - outpatient palliative radiation - if biopsy confirms metastatic prostate cancer - start bicalutamide 50 mg PO daily while inpatient - outpatient follow up Consult urology - no surgical intervention given normal renal function (if worsening, left percutaneous nephrostomy tube would be required) - follow up outpatient Working towards PO pain regiement + Bowel regiment - scheduled Tylenol, oxycodone every 5 hour as needed PT consulted - recommend walker or cane with ambulation. Rx signed for walker Patient here from [place] visiting son and grandkids - does plan to stay in [facility] for further treatment. (2) DVT (deep venous thrombosis): Plan: Left lower extremity DVT , most likely due to to cancer Started on Lovenox 60mg q12H for 1mg/kg bid dosing - resume this evening, monitoring for bleeding CTA: no PE (3) Atrial fibrillation: Plan: + on telemetry monitoring overnight 08/31 but spontaneously converted back to NSR - no prior hx of afib - switch lisinopril to metoprolol - Echo: normal function, no intraatrial defect - continue lovenox for anticoagulation at this time TSH WNL (4) Pneumonia: Plan: seen on chest CTA, + cough continue azithromycin and CTX (5) Hyponatremia: Plan: Sodium 130 - no hx of hyponatremia also consistent with SIADH, fluid restriction added. Sodium improving, today 133 AM BMP Plan Dispo: continued inpatient stay Dvt proh: Lovenox q12 to resume this evening Admission and Anticipated Discharge Date Admission Date: September 01, 2023 Supervising Physician Co-Signing Physician Notes TUTU Supervision Note: I did not personally see or examine the patient today, but I verified all eric points of TUTU Gillespie's assessment and plan with the following exceptions/additions: None Subjective Patient seen lying in bed postprocedure. No bleeding noted at the biopsy site. Patient is nervous about his pain control states that he gets better relief from the oxycodone than the morphine, however does not feel like the oxycodone last 6 hours. Good appetite, urinating without issue Telemetry: Sinus rhythm in 60s and 70s, did have some PAT earlier this morning Review of Systems Review of Systems: All systems reviewed & are unremarkable except as noted in Subjective Physical Exam Physical Exam: General: cachectic, NAD, VS as above Resp: normal respiratory effort, lungs clear to auscultation CV: RRR, no murmur, Abd: soft, non tender, no hepatosplenomegaly. no Bruising or signs of active bleeding surrounding biopsy site. Extremities: Moves all extremities, + Edema LLE/calf Neuro: A&O x3, Skin: intact, no lesions noted, multiple tattoos Results & Data Results & Data Vital Signs (Past 12 Hours) Vital Signs Temp Pulse Pulse Pulse Resp BP Pulse Ox 09/04/23 11:58 36.6 C 76 18 118/76 97 09/04/23 08:40 84 09/04/23 07:59 36.7 C 60 18 138/74 93 09/04/23 04:09 36.7 C 59 L 18 123/56 L 96 O2 Del Method 09/04/23 11:58 Room Air 09/04/23 08:40 09/04/23 07:59 Room Air 09/04/23 04:09 Room Air Laboratory Results BMP reviewed PG Care Time/CCT Total # of Minutes Spent Total Time Spent with Patient: Total time spent is greater than 50% in coordination of care (as documented) at patient's floor/unit and/or counseling patient: Coding Level of Care Code 66367 SUB INP/OBS CARE 3/50MIN Diagnoses Prostate cancer metastatic to bone C61; C79.51 DVT (deep venous thrombosis) I82.409 Atrial fibrillation I48.91 Pneumonia J18.9 Hyponatremia E87.1
[2023-09-04] MEDS: MoRPHine SULFATE 2 MG/ML CARP IV PRN (16:02)
[2023-09-04] MEDS: oxyCODONE HCL IR 5 MG TAB (IMMEDIATE RELEASE) PO PRN (17:12)
[2023-09-04] MEDS: ACETAMINOPHEN 325 MG TAB PO SCH (17:12)
[2023-09-05 07:45] LABS: BUN Creatinine Ratio 17.4 (10-20); Calcium 8.3 mg/dl (8.6-10.3); Creatinine Clr Calc Pharmacy 42.8 ml/min; Est GFR (Non-African American) 49.2 ml/min; Potassium 4.7 mmol/L (3.5-5.1)
[2023-09-05] MEDS: SODIUM CHLORIDE 0.9% 500 ML IV ONE (09:34)
[2023-09-05 10:09] LABS: Basophils # (auto) 0.04 K/uL (0.00-0.20); Basophils % (auto) 0.9 %; Eosinophils # (auto) 0.28 K/uL (0.00-0.50); Hematocrit (blood only) 36.5 % (42.0-52.0); Hemoglobin 12.2 g/dl (14.0-18.0); Immature Granulocytes # (auto) 0.04 K/uL (0.01-0.20); Immature Granulocytes % (auto) 0.9 %; Lymphocytes # (auto) 0.99 K/uL (1.20-3.40); Lymphocytes % (auto) 21.3 %; Mean Corpuscular Hemoglobin 29.5 pg (25.0-34.0); Mean Corpuscular Hgb Conc 33.4 g/dL (32.0-36.0); Mean Corpuscular Volume 88.2 fL (80.0-100.0); Mean Platelet Volume 10.4 fL (9.4-12.4); Monocytes # (auto) 0.53 K/uL (0.11-0.59); Monocytes % (auto) 11.4 %; Neutrophils # (auto) 2.76 K/uL (1.40-6.50); Neutrophils % (auto) 59.5 %; Platelet Count 215 K/uL (130-400); RDW Coefficient of Variation 14.1 % (11.5-14.5); RDW Standard Deviation 45.5 fL (36.4-46.3); Red Blood Count 4.14 M/uL (4.70-6.10); White Blood Count 4.64 K/ul (4.8-10.8)
[2023-09-05 10:59] LABS: Magnesium 2.3 mg/dl (1.7-2.4)
[2023-09-05 11:07] LABS: Troponin I High Sensitivity 4.8 pg/ml (0-20)
[2023-09-05] MEDS: SODIUM CHLORIDE 0.9% 500 ML IV SCH (12:09)
--- NOTE | 2023-09-05 13:35 | Electrocardiogram Report ---
Test Reason : Blood Pressure : / mmHG Vent. Rate : 064 BPM Atrial Rate : 064 BPM P-R Int : 148 ms QRS Dur : 104 ms QT Int : 406 ms P-R-T Axes : -24 081 075 degrees QTc Int : 418 ms Normal sinus rhythm Normal ECG When compared with ECG of 01-SEP-2023 19:23, Premature atrial complexes are no longer Present Confirmed by Kenny Gomez ([id number]) on 09/05/2023 1:34:52 PM Referred By: REFERRED SELF Confirmed By:Kenny Gomez
--- NOTE | 2023-09-05 15:08 | Hospitalist Progress Note ---
Date of Service September 05, 2023 Assessment & Plan (1) Prostate cancer metastatic to bone: Plan: CTAP: Multiple large hepatic masses are present. These are likely centrally necrotic. Index segment 4 lesion measures 9.1 x 8.4 cm. There is moderate left hydroureteronephrosis with delayed nephrogram and left renal atrophy. Extensive left-sided retroperitoneal lymphadenopathy. This adenopathy likely occludes the left iliac veins. There is a large infiltrative left pelvic mass which measures 8.5 x 6.5 cm. This partially encases the prostate gland and extends to the base of the bladder and rectum. Bladder wall thickening is noted. In addition, there is rectal wall thickening. Pathologic perirectal lymph nodes are present. Numerous sclerotic skeletal lesions are present. Probable extension of tumor into the left iliac and gluteal musculature is noted. There is asymmetric edema within the left thigh. - Patient here from [place] visiting son and grandkids - does plan to stay in [place] for further treatment. PSA: [phone] Consult hematology oncology - S/p IR guided bx of liver - pathology pending - outpatient palliative radiation - if biopsy confirms metastatic prostate cancer - start bicalutamide 50 mg PO daily while inpatient - outpatient follow up Consult urology - no surgical intervention given normal renal function (if worsening, left percutaneous nephrostomy tube would be required) - follow up outpatient Working towards PO pain regiment + Bowel regiment - scheduled Tylenol, oxycodone every 5 hour as needed PT consulted - recommend walker or cane with ambulation. Rx signed for walker 09/04: pt reported dizziness with standing and slight bump in Cr. Also squeezing intermittent chest pain without shortness of breath - orthostatic VS positive - given 1L NSS and PO powerade - trop negative, repeat pending. EKG: NSR no signs of ischemia AM CBC, BMP (2) DVT (deep venous thrombosis): Plan: Left lower extremity DVT , most likely due to to cancer Started on Lovenox 60mg q12H - however not affordable at pharmacy. Discussed with Dr. Pizano, will transition to Eliquis and check affordability CTA: no PE Continue Kpad, elevate extremity and compression stocking (3) Atrial fibrillation: Plan: + on telemetry monitoring overnight 08/31 but spontaneously converted back to NSR - no prior hx of afib - switch lisinopril to metoprolol - metoprolol decreased to 25mg for 09/04 due to bradycardia and orthostatic hypotension - Echo: normal function, no intraatrial defect - Eliquis as above TSH WNL (4) Pneumonia: Plan: seen on chest CTA, + cough continue azithromycin and CTX IS, FV (5) Hyponatremia: Plan: Sodium 130 - no hx of hyponatremia also consistent with SIADH, fluid restriction added. Sodium improving, today 133 AM BMP Plan Dispo: continued inpatient stay, patient does not have prescription coverage and nancie discuss with CM tomorrow Dvt proh: transition to Eliquis for evening dose Family updated at beside 09/04 Admission and Anticipated Discharge Date Admission Date: September 01, 2023 Supervising Physician Co-Signing Physician Notes PA Supervision Note: I did not personally see or examine the patient today, but I verified all eric points of TUTU Gillespie's assessment and plan with the following exceptions/additions: None Subjective Patient seen lying in bed, son present at bedside. Patient has concerns about going homeis worried about his pain control. Also states that he is felt more dizzy when standing today. Patient states that his left lower extremity feels more swollen than it has been when he arrived. Also with pain with walking Also reports some intermittent squeezing pain in the left lower chest area Tele SR/SB 50-60s Review of Systems Review of Systems: All systems reviewed & are unremarkable except as noted in Subjective Physical Exam Physical Exam: General: cachectic, NAD, VS as above Resp: normal respiratory effort, diminished in bases CV: RRR, no murmur, Abd: soft, non tender, no hepatosplenomegaly. no Bruising or signs of active bleeding surrounding biopsy site. does have an ecchymotic area about 2 inches below the biopsy site, suspect this is from the Lovenox injection. Extremities: Moves all extremities, + Edema LLE/calf Neuro: A&O x3, Skin: intact, no lesions noted, multiple tattoos Results & Data Results & Data Vital Signs (Past 12 Hours) Vital Signs Temp Pulse Pulse Resp BP Pulse Ox O2 Del Method 09/05/23 11:08 36.6 C 90 18 135/75 98 Room Air 09/05/23 09:14 53 L 09/05/23 07:37 36.6 C 57 L 18 132/73 98 Room Air 09/05/23 04:05 36.4 C L 54 L 18 133/60 96 Room Air Laboratory Results CBC, chemistry, mag, troponin reviewed Diagnostic Findings EKG reviewed PG Care Time/CCT Total # of Minutes Spent Total Time Spent with Patient: Total time spent is greater than 50% in coordination of care (as documented) at patient's floor/unit and/or counseling patient: Coding Level of Care Code 81506 SUB INP/OBS CARE 3/50MIN Diagnoses Prostate cancer metastatic to bone C61; C79.51 DVT (deep venous thrombosis) I82.409 Atrial fibrillation I48.91 Pneumonia J18.9 Hyponatremia E87.1
[2023-09-05] MEDS: APIXABAN 5 MG TABLET PO SCH (17:27)
[2023-09-06 08:08] LABS: Basophils # (auto) 0.04 K/uL (0.00-0.20); Basophils % (auto) 0.8 %; Eosinophils # (auto) 0.25 K/uL (0.00-0.50); Hematocrit (blood only) 36.6 % (42.0-52.0); Hemoglobin 12.2 g/dl (14.0-18.0); Immature Granulocytes # (auto) 0.05 K/uL (0.01-0.20); Lymphocytes # (auto) 1.01 K/uL (1.20-3.40); Mean Corpuscular Hemoglobin 29.8 pg (25.0-34.0); Mean Corpuscular Hgb Conc 33.3 g/dL (32.0-36.0); Mean Corpuscular Volume 89.3 fL (80.0-100.0); Mean Platelet Volume 9.9 fL (9.4-12.4); Monocytes % (auto) 11.9 %; Neutrophils # (auto) 3.09 K/uL (1.40-6.50); Neutrophils % (auto) 61.3 %; Platelet Count 188 K/uL (130-400); RDW Coefficient of Variation 13.9 % (11.5-14.5); RDW Standard Deviation 45.1 fL (36.4-46.3); White Blood Count 5.04 K/ul (4.8-10.8)
[2023-09-06 08:48] LABS: BUN Creatinine Ratio 18.4 (10-20); Calcium 8.7 mg/dl (8.6-10.3); Creatinine Clr Calc Pharmacy 45.7 ml/min; Est GFR (African American) 61.1 ml/min; Est GFR (Non-African American) 52.7 ml/min
[2023-09-06] MEDS: METOPROLOL SUCC 25MG EXT REL TAB PO SCH (09:53)
--- NOTE | 2023-09-06 15:46 | Discharge Summary ---
Discharge Summary Date of Service September 06, 2023 Principal Dx & Hospital Course #1 = Principal Diagnosis (1) Prostate cancer metastatic to bone: CTAP: Multiple large hepatic masses are present. These are likely centrally necrotic. Index segment 4 lesion measures 9.1 x 8.4 cm. There is moderate left hydroureteronephrosis with delayed nephrogram and left renal atrophy. Extensive left-sided retroperitoneal lymphadenopathy. This adenopathy likely occludes the left iliac veins. There is a large infiltrative left pelvic mass which measures 8.5 x 6.5 cm. This partially encases the prostate gland and extends to the base of the bladder and rectum. Bladder wall thickening is noted. In addition, there is rectal wall thickening. Pathologic perirectal lymph nodes are present. Numerous sclerotic skeletal lesions are present. Probable extension of tumor into the left iliac and gluteal musculature is noted. There is asymmetric edema within the left thigh. - Patient here from [place] visiting son and grandkiraya - does plan to stay in [place] for further treatment. PSA: 442 Consult hematology oncology - S/p IR guided bx of liver - pathology pending - outpatient palliative radiation - if biopsy confirms metastatic prostate cancer - start bicalutamide 50 mg PO daily while inpatient - outpatient follow up - Dr. Pizano plans to see this week Consult urology - no surgical intervention given normal renal function (if worsening, left percutaneous nephrostomy tube would be required) - follow up outpatient Working towards PO pain regiment + Bowel regiment - scheduled Tylenol, oxycodone every 5 hour as needed PT consulted - recommend walker or cane with ambulation. Rx signed for walker discharged home today with son. Ambulatory case management referral placed. (2) DVT (deep venous thrombosis): Left lower extremity DVT , most likely due to to cancer Started on Lovenox 60mg q12H - however not affordable at pharmacy. Discussed with Dr. Pizano, will transition to Eliquis -Affordable with 30-day coupon coverage. Patient does not have prescription drug coverage currently, he is aware of this and will continue to work on it. CTA: no PE Continue Kpad, elevate extremity and compression stocking (3) Atrial fibrillation: + on telemetry monitoring overnight 08/31 but spontaneously converted back to NSR - no prior hx of afib - switch lisinopril to metoprolol - metoprolol decreased to 25mg for 09/04 due to bradycardia and orthostatic hypotension - BP stable and orthostatic vitals much improved - Echo: normal function, no intraatrial defect - Eliquis as above TSH WNL (4) Pneumonia: seen on chest CTA, + cough Received azithromycin and CTX - completed course of azithromycin while inpatient. 2 additional days of Augmentin at discharge IS, FV (5) Hyponatremia: Sodium 130 - no hx of hyponatremia also consistent with SIADH, fluid restriction added. Sodium improving, today 134 discussed limiting free water at discharge Plan Dispo: discharged home today with oncology follow-up this week Family updated at beside 09/04. Son updated by phone 09/05 Notes For Next Care Provider patient from out of town, visiting family in [place]. Present to the hospital for swelling of leg, found to be a DVT but also with likely metastatic prostate cancer. Biopsy of the liver is pending. He will be following with Dr. Pizano and plans to stay in the [place] area had A-fib while here but spontaneously converted to normal sinus rhythm. Completing treatment for pneumonia. Hyponatremia is improving. Does not have prescription drug coverage and will be working on this, ambulatory case management referral placed. Patient also with significant pain from his bony metastasis. Oxycodone prescription given. Medication Changes From Visit Oxycodone for pain Lisinopril discontinued Metoprolol started Eliquis started Augmentin twice daily x 2 days Admission HPI Per Admitting Provider This is a 67-year-old male with history of hypertension , recent right shoulder surgery presents emergency department due to concern for left low back pain, left leg pain and swelling that began 3 weeks ago. No recent trauma or change i n activity. He states symptoms began with the pain in his low back followed by pain and swelling to the leg. He states he has had difficulty performing daily functions. He states has been using a heating pad to try and help with pain. No prior history of back pain or ongoing problems. No recent change in bowel or bladder function. He denies fevers or chills. He states he had persistent naus ea and decreased appetite with subsequent weight loss but feels this all started when he had a shoulder replacement surgery 3 months ago. Patient is a former smoker. Venous Doppler positive for left lower leg DVT, started on Lovenox, CT abdomen pelvis extensive hepatic skeletal and glenny metastasis, there is a 8.5 x 6.5 cm infiltrative left pelvic mass which encases the prostate, findings favor prostate cancer with metastatic disease, has moderate left hydro ureteronephrosis. Patient denies any difficulties urinating, no hematuria, no fever or chills, reports significant weight loss, poor appetite, he still smokes a few cigarettes a day. Discharge Exam General: cachectic, NAD, VS as above Resp: normal respiratory effort, diminished in bases CV: RRR, no murmur, Abd: soft, non tender, no hepatosplenomegaly. no Bruising or signs of active bleeding surrounding biopsy site. does have an ecchymotic area about 2 inches below the biopsy site, suspect this is from the Lovenox injection - this area is improving Extremities: Moves all extremities, Edema LLE/calf Is improving Neuro: A&O x3, Skin: intact, no lesions noted, multiple tattoos Updated Medication List Medication Instructions Recorded Confirmed Type acetaminophen 500 mg tablet 500 mg PO Q6H PRN pain/fever 09/01/23 09/01/23 History apixaban 5 mg tablet (Eliquis) 5 mg PO BID 30 days #72 tabs 09/05/23 Rx amoxicillin 875 mg-potassium 1 tab PO BID #4 tabs 09/06/23 Rx clavulanate 125 mg tablet metoprolol succinate 25 mg 25 mg PO QAM 30 days #30 tabs 09/06/23 Rx tablet,extended release 24 hr oxycodone 5 mg tablet 10 mg (2 x 5 mg) PO Q5H PRN pain 09/06/23 Rx 10 days #80 tabs polyethylene glycol 3350 17 gram 17 g PO DAILY PRN constipation #30 09/06/23 Rx oral powder packet (Miralax) ea sennosides 8.6 mg tablet (Senokot) 17.2 mg (2 x 8.6 mg) PO QAM #30 09/06/23 Rx tabs Hospital Stay Data Consultations 09/01/23 15:25 ED Decision to Admit Stat 09/01/23 15:48 Consult Hematology Routine 09/01/23 15:51 Consult Urology Stat 09/01/23 15:58 Consult Urology Routine 09/06/23 13:15 Consult Case Management Ambulatory ONCE Diagnostic Imagining Performed Venous Doppler Study 09/01/23 10:12 LEFT LOWER EXTREMITY VENOUS DOPPLER HISTORY: Left leg edema, pain COMPARISON STUDY: None. FINDINGS: There is occlusive to near occlusive thrombus seen within the left common femoral vein and left superficial femoral vein. The left popliteal vein and left calf veins appear patent. There is also thrombus seen within the left greater saphenous vein. IMPRESSION: Left lower extremity DVT as described above. ACT 112: Negative or not required by law. Electronically signed by: Manuel March M.D. 09/01/2023 12:41 PM Abdomen/Pelvis CT 09/01/23 12:38 CT OF THE ABDOMEN AND PELVIS WITH CONTRAST CLINICAL HISTORY: Left back pain, wt loss, LLE swelling. COMPARISON STUDY: None. TECHNIQUE: Following IV administration of 94 mL of Optiray, axial images of the abdomen and pelvis were obtained from the lung bases to the proximal femurs. Images were reviewed in the axial, sagittal, and coronal planes. IV contrast was administered without complication. Automated exposure control was utilized for the study. A dose lowering technique was utilized adhering to the principles of ALARA. CT DOSE: 787.32 mGy.cm FINDINGS: Right lower lobe airspace opacity with interlobular septal thickening is partially imaged on this exam. No pneumatosis, free air or portal venous gas is present. There is a small hiatal hernia. Multiple large hepatic masses are present. These are likely centrally necrotic. Index segment 4 lesion measures 9. 1 x 8.4 cm. There is no biliary or pancreatic ductal dilatation. The spleen, adrenal glands and pancreas are unremarkable. The right kidney is unremarkable. There is moderate left hydroureteronephrosis with delayed nephrogram and left renal atrophy. There is abrupt narrowing of the left ureter at the level of the upper pelvis on image 214 of 337. This is due to pathologic adenopathy. Extensive left-sided retroperitoneal lymphadenopathy. Index infiltrative left iliac node on image 216 measures 4.6 x 3.2 cm. This adenopathy likely occludes the left iliac veins. There is a large infiltrative left pelvic mass which measures 8.5 x 6.5 cm. This partially encases the prostate gland and extends to the base of the bladder and rectum. Bladder wall thickening is noted. In addition, there is rectal wall thickening. Pathologic perirectal lymph nodes are present. There is no evidence for a bowel obstruction. Numerous sclerotic skeletal lesions are present. No pathologic fractures are identified. Probable extension of tumor into the left iliac and gluteal musculature is noted. There is asymmetric edema within the left thigh. IMPRESSION: 1. Extensive hepatic, skeletal and glenny metastases, as described above. 8.5 x 6.5 cm infiltrative left pelvic mass which encases the prostate and abuts the rectum and bladder. The findings favor prostate cancer with metastatic disease. 2. Infiltrative left iliac adenopathy likely occludes the left iliac veins and narrows the left ureter with resultant moderate left hydroureteronephrosis with delayed nephrogram and left renal atrophy. 3. No bowel obstruction. 4. Partially visualized right lower lobe airspace opacity with interlobular septal thickening. ACT 112: Negative or not required by law. Electronically signed by: Diego Whyte M.D. 09/01/2023 1:[address] 09/01/23 12:38 CT lumbar spine w con CT DOSE: CLINICAL HISTORY: left lbp, LLE edema, wt loss TECHNIQUE: Multiaxial CT images of the lumbar spine were performed following the intravenous administration of contrast and reformatted in the sagittal and coronal plane. A dose lowering technique was utilized adhering to the principles of ALARA. COMPARISON STUDY: None. FINDINGS: There is multifocal osteoblastic metastatic disease within the lumbar spine and sacrum. Dominant lesion at the L2 level measures 1.7 cm. No acute fractures within the lumbar spine. Mild disc space narrowing at L2-L3. No significant central canal narrowing by CT technique. There is retroperitoneal and left iliac lymphadenopathy. There is left-sided hydronephrosis. Partially visualized hepatic masses. IMPRESSION: 1. 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 2. No acute fractures. 3. Retroperitoneal and left iliac lymphadenopathy with multiple hepatic masses. This likely represents metastatic disease. This is better appreciated on the same day abdomen and pelvis CT. ACT 112: Negative or not required by law. Electronically signed by: Manuel March M.D. 09/01/2023 1:10 PM Chest X-Ray 09/01/23 15:43 XR chest 2V PA/lateral HISTORY: Shortness of breath. COMPARISON: None. FINDINGS: No pneumothorax. No pleural effusions. The lungs are hyperexpanded with emphysematous changes. No focal lung consolidations to suggest a pneumonia. No evidence for pulmonary edema. The heart is normal in size. The right shoulder prosthesis. Mild anterior wedging within the mid thoracic spine vertebral body is likely chronic. There is a 7 mm nodular density within the left midlung zone. This may represent a normal pulmonary vessel. IMPRESSION: 1. Emphysema. 2. No acute process within the chest. 3. A 7 mm nodular density within the left midlung zone may represent a normal pulmonary vessel. This will be better appreciated on the same day chest CTA. ACT 112: Negative or not required by law. Electronically signed by: Manuel March M.D. 09/01/2023 5:03 PM Chest CTA 09/01/23 16:40 CT angio chest PE protocol CLINICAL HISTORY: PE TECHNIQUE: Multidetector row helical CT of the chest was performed with angiographic protocol. Coronal and sagittal reformations were obtained. Coronal and sagittal MIPS were obtained from the axial data set and were submitted for review. Automated dose lowering techniques and/or adjustment according to patient size were utilized for this exam. CT DOSE: 395.36 mGy.cm Comparison: None available at the time of this dictation. FINDINGS: Lungs and pleura: Diffuse centrilobular emphysema is seen most prominent in the upper lobes. Multiple wall thickening, mucous plugging, and tree-in-bud nodularity are seen most prominently in the right lower lobe. There is also a paramediastinal density measuring 7 m. Heart and pericardium: Heart size is normal. No pericardial effusion. Vessels: No evidence of pulmonary embolism. Mediastinum and zoe: Unremarkable. Chest wall and lower neck: Small thyroid nodules are noted which do not require follow-up by ACR criteria. Abdomen: For findings below the diaphragm, please refer to CT of the abdomen dated the same. Bones: Degenerative changes in the thoracic spine. Scattered sclerotic foci are seen. Right shoulder arthroplasty is seen. IMPRESSION: 1. Scattered bronchial wall thickening, mucus plugging, and nodules/airspace opacities compatible with pneumonia. Follow-up to resolution is recommended. 2. Multiple sclerotic foci are seen in the skeleton compatible with metastatic disease. ACT 112: Negative or not required by law. Electronically signed by: Miguelito Whiting M.D. 09/01/2023 9:20 PM Liver Biopsy Ultrasound 09/04/23 10:00 ULTRASOUND-GUIDED LIVER LESION CORE BIOPSY CLINICAL HISTORY: Multiple hepatic lesions PROCEDURE: Procedure and risks were explained. Informed consent was obtained. A final timeout was completed. The abdomen was prepped and draped in sterile fashion. 1% lidocaine was utilized for skin anesthesia. The patient received 100 mcg fentanyl IV. Utilizing ultrasound guidance, a 17-gauge coaxial needle was advanced into the left lobe liver lesion. Ultrasound images were obtained. An 18-gauge core biopsy needle was advanced, and 2 cores were obtained and given to pathology for review. The coaxial needle was removed and Band-Aid applied. The patient tolerated the procedure well. Vital signs will be monitored postprocedure. IMPRESSION: Ultrasound-guided liver lesion core biopsy as above. Performed, dictated, and signed by Anam Lua PA-C; to be co-signed by Dr. Miguelito Whiting. Electronically signed by: Miguelito Whiting M.D. 09/04/2023 5:00 PM Pending Results Patient Have Any Pending Studies at Discharge: Yes (liver pathology/biopsy) Discharge Instructions Given to Patient (Per Discharging Provider) Mr. Gray. You were hospitalized after having leg swelling, found to have a blood clot in your legs, and a mass in your prostate area that is highly suspicious for cancer. There are also lesions on your spine and liver. The biopsy from your liver is pending, and Dr. Pizano will be able to go over results with you. Because of the liver biopsy you should continue to take it easy over the next week. No lifting greater than [address] Pizano's office if you develop any of the following. * Chest pain or shortness of breath * Bleeding from the biopsy site * Fever (temperature greater than 100.4F or 38C) * Blood in your stool or black, tarry stools Because of the blood clot, you need to be on a blood thinner. We have sent in Eliquis, that is free for 30 days with the coupon card. You should continue to work on obtaining prescription drug coverage for next month. Because you are now on a blood thinner you should not take NSAIDs. Further information about this below. The blood clot will take time to dissolve. The eliquis helps prevent new blood clots, it does not get rid of the old clots. * Continue with heat pads as needed * Wear compression stocking * Elevate leg You were also found to have pneumonia. You were treated with IV antibiotics and will be discharged with oral antibiotics. Continue to use the incentive spirometer at home. * Augmentin - twice a day for two days, starting 09/06 You have considerable pain from the bone lesions. Dr. Pizano will be able to help determine if radiation will be of benefit for you. For now you can continue on t he oxycodone every 5 hours with scheduled tylenol. Okay to use heat, ice, lidocaine patches (purchase over the counter) or voltaren cream. * Prescription sent for oxycodone * do NOT take NSAIDs - aleve, motrin, ibuprofen, etc. * Continue miralax and senna to keep bowels moving - these can be purchased over the counter. While you were here, you had an abnormal heart rhythm called atrial fibrillat ion. Thankfully, you have switched back to the normal rhythm on your own. However, because of this we have changed your blood pressure medication. * Stop taking lisinopril * New prescription for Metoprolol sent to the pharmacy You were seen by Physical therapy and they recommend that they you have a walker while you are moving for pain relief and stability * walker provided You also had low sodium level. This was improving. Continue to drink protein shakes and electrolyte drinks. Limit your free water to less than 2000 mL per day. Follow ups: - Dr. Pizano - oncology - PCP - Jeison Osei - Urology - referral placed to case specialist to help navigate appointments and assist with insurance coverage CONTACT YOUR PRIMARY CARE PROVIDER if you experience any of the following: Shortness of breath or difficulty breathing Fevers or chills Feeling tired with normal activity or experiencing dizziness or fainting Difficulty following your treatment plan, or difficulty taking medications CALL 911 OR GO TO THE EMERGENCY DEPARTMENT if you experience any of the following: Severe abdominal pain or nausea/vomiting Severe chest pain, or chest pain that radiates (moves) to your jaw or arm Sudden, severe shortness of breath or difficulty breathing Thank you for allowing us to participate in your care. Ashlee Gillespie PA-C Here are some guidelines about taking Eliquis: Increased risk of blood clots if you stop taking Eliquis. Do not stop taking Eliquis without talking to your doctor.. Stopping Eliquis increases your risk of having a stroke. Increased risk of bleeding. Eliquis can cause bleeding which can be serious and may lead to . This is because Eliquis is a blood thinner medicine (anticoagulant) that lowers blood clotting. During treatment with Eliquis you are likely to bruise more easily, and it may take longer for bleeding to stop. * If you ever cannot get bleeding to stop please report to the ER * If you have a bruise that is large/painful or swollen you should also be seen by a medical provider Call your doctor or get medical help right away if you or your child develop any of these signs or symptoms of bleeding: unexpected bleeding or bleeding that lasts a long time, such as: * Nose bleeds that happen often * unusual bleeding from the gums * bleeding that is severe or you cannot control * red, pink or brown urine * bright red or black stools (looks like tar) * cough up blood or blood clots * vomit blood or your vomit looks like coffee grounds If you have a fall and hit your head, please come to the ER and get checked out. Being on a blood thinner increases your risk of brain bleeding with falls. Avoid high risk activities, such as: * standing on tall ladders * riding motorcycles * anything where you are high risk for falls or trauma Avoid taking NSAIDs (pain medication) while you are taking a blood thinner. This includes: * Ibuprofen, Aleve Advil, Naproxen. * If you are ever unsure you can ask your doctor or pharmacist. * Tylenol is SAFE to take. If you have any new or worsening chest pain or shortness of breath please return to the ER. Total Time Total Time Spent Total Time Spent (In Minutes): Time spend day of discharge 60+ minutes including direct patient care, medication reconciliation, documentation, review of labs and images, and coordination of care. Supervising Physician Co-Signing Physician Notes TUTU Supervision Note: I personally saw and examined the patient. I verified all eric points and agree with TUTU Gillespie with the following exceptions and/or additions: S-patient seen with Ashlee CAM at bedside. Patient anxious about discharge, we reviewed all his discharge instructions and medications He was reporting still feeling some lightheadedness with walking, repeat orthostatics were negative After discussion he was feeling more comfortable with being discharged today He also reported that when he had chest pain during his liver biopsy that this scared him. We reassured him that he had a normal cardiac workup and negative CT angiogram of the chest for PE. O- Vitals reviewed Gen: AAOx3, NAD HEENT: Anicteric sclerae, EOMI CV: RRR no mgr nl S1S2 Pulm: Diminished breath sounds throughout, occasional scattered rhonchi Abd: +BS soft NT ND no masses or hernias Ext: Trace pitting edema of the left leg to the knee bilaterally Skin: No rashes, warm/dry Neuro: Full strength throughout [id number] male here with DVT and possible metastatic pancreatic cancer, pneumonia, and newly diagnosed atrial fibrillation Plan outlined as above Finish out antibiotics for pneumonia Eliquis for DVT Liver biopsy pending, follow-up with urology if prostate cancer and follow-up with oncology arranged Pain control with oxycodone. Once he gets prescription drug plan benefits, could potentially look into long-acting OxyContin Radiation oncology for bony metastases will also be beneficial for pain control Coding Level of Care Code 76029 INP/OBS DISCH >30 MIN Diagnoses Prostate cancer metastatic to bone C61; C79.51 DVT (deep venous thrombosis) I82.409 Atrial fibrillation I48.91 Pneumonia J18.9 Hyponatremia E87.1
[2023-09-12] MEDS ORDERED: APIXABAN 5 MG TABLET PO SCH (21:00)
== END 2023-09-06 17:13 | disposition home or self-care (01) | DRG 722 ==
LOC: ED 09:48 → SUATTDRO 15:57 → 2N 15:57